=== PATIENT | male | born 1965 | race African-American/Black ===

== ENCOUNTER 2016-12-31 01:07 | Emergency (ER) | payer OTHER ==
[~2016-12-31] VITALS: Ht 172.7 cm; Wt 158.8 kg
[~2016-12-31 01:07] MED LIST: ALBUTEROL SULF8.5 GM INH; AZITHROMYCIN250 MG ORAL; BACTRIM DS TAB1 EAC1 ORAL; COZAAR50 MG ORAL; DOXYCYCLINE MO100 MG ORAL; GLUCOPHAGE500 MG ORAL; HYZAAR 100-251 EACH ORAL; LEVEMIR FL100 UNIT/1 SUBQ; LOSARTAN POTASS25 MG ORAL; METFORMIN HCL1000 MG ORAL; NAPROSYN500 M1 ORAL; NORCO 5-325 TA1 EAC1 ORAL; NORCO 5-325 TA1 EACH ORAL; POTASSIUM CHLO20 ME3 PO; PROMETHAZINE HC25 M1 ORAL; ROBAXIN-750750 MG PO; VICODIN 5-5001 EACH PO; ZANTAC150 MG ORAL; hyzaar
--- NOTE | 2016-12-31 01:52 | Emergency Room Report ---
History of Present Illness General Chief Complaint: Dizziness Source: Patient Present Illness HPI Patient presents with dry mouth, weakness, strange feeling in his abdomen with the thought that his blood sugar is elevated. He was started on a different oral medication recently. He does take Lantus 14 units twice a day. He was told he didn't need to check his blood sugars anymore when he stopped metformin. He started his new medications and his MD said that he would lose weight. He's not been eating well. His lost his appetite. Medicine = Synjardy. The patient complains of some mild chest pain. Nonexertional. He states he had gallstones which were taking care of by ERCP. He feels somewhat like that but doesn't have the pain that he had when he had gallstones. No dysuria, URI sy, cough, dyspnea, headache. Allergies: Coded Allergies: PENICILLINS (Verified Allergy, Intermediate, Rash, 05/14/13) Patient History Past Medical History: see triage record Past Surgical History: other - ERCP Social History: Reports: alcohol use, drug use - THC, Denies: smoking Social History Narrative At home Reviewed Nursing Documentation: PMH: Agreed, PSxH: Agreed Nursing Documentation-PMH Hx Cardiac Problems: Yes Hx Hypertension: Yes Hx Pacemaker: No Hx Asthma: No Hx COPD: No Hx Diabetes: Yes Hx Cancer: No Hx Gastrointestinal Problems: Yes - morbidly obese Hx Dialysis: No Hx Neurological Problems: Yes Hx Cerebrovascular Accident: No Hx Headaches: Yes Hx Weakness: Yes Review of Systems All Other Systems: negative except mentioned in HPI Physical Exam Vital Signs Date Time Temp Pulse Resp B/P Pulse Ox O2 Delivery O2 Flow Rate FiO2 12/31/16 01:11 98.1 104 16 122/77 95 Room Air Sp02 EP Interpretation: reviewed, normal General Appearance: well appearing, no apparent distress, GCS 15, obese Head: normocephalic Eyes: bilateral eye PERRL, bilateral eye normal inspection ENT: dry mucus membranes Neck: supple Respiratory: lungs clear, normal breath sounds Cardiovascular #1: regular rate, rhythm Cardiovascular #2: 2+ radial (R) Gastrointestinal: normal inspection, normal bowel sounds, non tender, no mass, non-distended, overweight Musculoskeletal: back normal, gait/station normal, normal range of motion Neurologic: alert, oriented x3, motor strength/tone normal, sensory intact, normal gait, speech normal Psychiatric: mood/affect normal Skin: normal inspection, warm/dry Medical Decision Making Diagnostic Impression: Primary Impression: Hyperglycemia Additional Impression: Hyperkalemia ER Course Patient presents with anorexia, weakness and polyuria with polydipsia bleeding his blood sugars are elevated. This is after he's recently started on oral medications new. Differential includes hyperglycemia, diabetic ketoacidosis, electrolyte abnormalities, renal insufficiency, acute myocardial infarction amongst others. Evaluation will be with labs, EKG, chest x-ray after the patient will IV hydration and recheck of his blood sugar. Labs with elevated glucose and potassium. Minimal renal insufficiency. EKG without peaked T waves. CXR, abd unremarkable. Sugars better. Treated with kayexelate. Discussed need to follow up with his MD and have labs repeated. Also advised to increase lantus. Patient stable for outpatient observation and treatment. Laboratory Tests Test 12/31/16 01:45 12/31/16 02:59 White Blood Count 9.0 K/UL (4.8-10.8) Red Blood Count 5.49 M/UL (4.70-6.10) Hemoglobin 16.7 G/DL (14.2-18.0) Hematocrit 51.9 % (42.0-52.0) Mean Corpuscular Volume 94 FL (80-99) Mean Corpuscular Hemoglobin 30.5 PG (27.0-31.0) Mean Corpuscular Hemoglobin Concent 32.3 G/DL (32.0-36.0) Red Cell Distribution Width 13.0 % (11.6-14.8) Platelet Count 225 K/UL (150-450) Mean Platelet Volume 9.7 FL (6.5-10.1) Neutrophils (%) (Auto) 61.5 % (45.0-75.0) Lymphocytes (%) (Auto) 27.4 % (20.0-45.0) Monocytes (%) (Auto) 7.3 % (1.0-10.0) Eosinophils (%) (Auto) 2.7 % (0.0-3.0) Basophils (%) (Auto) 1.2 % (0.0-2.0) Prothrombin Time 10.6 SEC (9.30-11.50) Prothrombin Time INR 1.0 (0.9-1.1) PTT 27 SEC (23-33) Sodium Level 133 mEQ/L (135-145) L Potassium Level 5.4 mEQ/L (3.4-4.9) H Chloride Level 92 mEQ/L (98-107) L Carbon Dioxide Level 23 mEQ/L (20-30) Anion Gap 18 (5-15) H Blood Urea Nitrogen 13 mg/dL (7-23) Creatinine 1.2 mg/dL (0.7-1.2) Estimate Glomerular Filtration Rate > 60 mL/min (>60) Glucose Level 271 mg/dL (74-106) H Calcium Level 9.5 mg/dL (8.6-10.2) Total Bilirubin 0.7 mg/dL (0.0-1.2) Aspartate Amino Transferase (AST) 77 U/L (5-40) H Alanine Aminotransferase (ALT) 65 U/L (3-41) H Alkaline Phosphatase 141 U/L (40-129) H Total Creatine Kinase 1219 U/L (38-174) H Troponin I < 0.30 ng/mL (<=0.30) Total Protein 7.7 g/dL (6.6-8.7) Albumin 3.9 g/dL (3.5-5.2) Globulin 3.8 g/dL Albumin/Globulin Ratio 1.0 (1.0-2.7) Lipase 59 U/L (< 60) Urine Color Pale yellow Urine Appearance Clear Urine pH 6 (4.5-8.0) Urine Specific [place] 1.005 (1.005-1.035) Urine Protein Negative (NEGATIVE) Urine Glucose (UA) 4+ (NEGATIVE) H Urine Ketones Negative (NEGATIVE) Urine Occult Blood Negative (NEGATIVE) Urine Nitrite Negative (NEGATIVE) Urine Bilirubin Negative (NEGATIVE) Urine Urobilinogen Normal MG/DL (0.0-1.0) Urine Leukocyte Esterase Negative (NEGATIVE) EKG Diagnostic Results Rate: normal Rhythm: NSR ST Segments: no acute changes Rhythm Strip Diag. Results EP Interpretation: yes Rhythm: NSR, no PVC's, no ectopy Chest X-Ray Diagnostic Results EP Interpretation: Yes Findings: no consolidation, no effusion, no pneumothorax, no acute cardiopulmonary disease Number of Views: 1 Other X-Ray Diagnostic Results Other X-Ray Diagnostic Results : X-Ray Ordered: abd EP Interpretation: Yes Findings: no fractures, no dislocation, no soft tissue swelling, other - paucity gas, no SBO, no masses Number of Views: 2 Status: improved Disposition: HOME, SELF-CARE Condition: Improved London Jensen M.D. December 31, 2016 01:52
[2016-12-31 01:57] VITALS: BP 131/87
[2016-12-31 01:57] LABS: BASOPHILS % (AUTO) 1.2 % (0.0-2.0); EOSINOPHILS % (AUTO) 2.7 % (0.0-3.0); LYMPHOCYTES % (AUTO) 27.4 % (20.0-45.0); MEAN CORPUSCULAR HEMOGLOBIN 30.5 PG (27.0-31.0); MEAN CORPUSCULAR HGB CONC 32.3 G/DL (32.0-36.0); MEAN CORPUSCULAR VOLUME 94 FL (80-99); MEAN PLATELET VOLUME 9.7 FL (6.5-10.1); MONOCYTES % (AUTO) 7.3 % (1.0-10.0); NEUTROPHILS % (AUTO) 61.5 % (45.0-75.0); PLATELET COUNT 225 K/UL (150-450); RED BLOOD COUNT 5.49 M/UL (4.70-6.10)
[2016-12-31 02:13] LABS: PROTHROMBIN TIME 10.6 SEC (9.30-11.50)
[2016-12-31 02:20] LABS: ALANINE AMINOTRANSFERASE 65 U/L (3-41); ANION GAP 18 (5-15); ASPARTATE AMINO TRANSFERASE 77 U/L (5-40); CALCIUM 9.5 mg/dL (8.6-10.2); CARBON DIOXIDE 23 mEQ/L (20-30); CHLORIDE 92 mEQ/L (98-107); CREATININE 1.2 mg/dL (0.7-1.2); GLOMERULAR FILTRATION RATE > 60 mL/min (>60); HEMOLYSIS 248; LIPASE 59 U/L (< 60); POTASSIUM 5.4 mEQ/L (3.4-4.9); SODIUM 133 mEQ/L (135-145); TOTAL PROTEIN 7.7 g/dL (6.6-8.7)
[2016-12-31 02:33] LABS: TROPONIN I < 0.30 ng/mL (<=0.30)
[2016-12-31 03:11] LABS: APPEARANCE,URINE CLEAR; KETONES,URINE NEGATIVE (NEGATIVE); LEUKOCYTE ESTERASE ,URINE NEGATIVE (NEGATIVE); NITRITE,URINE NEGATIVE (NEGATIVE); PH,URINE 6 (4.5-8.0); PROTEIN,URINE NEGATIVE (NEGATIVE); UROBILINOGEN,URINE NORMAL MG/DL (0.0-1.0)
[2016-12-31 03:23] VITALS: BP 136/82
[2016-12-31] MEDS ORDERED: Sodium Polystyrene Sulfonate 15gm Powder ORAL ONE (04:15)
[2016-12-31 05:33] VITALS: BP 102/63
--- NOTE | 2016-12-31 11:13 | Diagnostic Imaging Report ---
Indications: Chest pain Technique: Portable AP chest Findings: Comparison: 10/02/2014 Inspiratory effort remains suboptimal but improved. Cardiac silhouette remains enlarged. Pulmonary vasculature remains within normal limits. Visualized portions of lungs and pleura remain clear. Mild elevation of the apparent right hemidiaphragm is unchanged. IMPRESSION: No evidence of acute disease, limited as described, unchanged Stable chronic changes as described
--- NOTE | 2016-12-31 11:51 | Diagnostic Imaging Report ---
Indications: Abdominal pain. Technique: AP view of the abdomen Findings: Comparison: None. Port image quality due to body habitus limits evaluation. Bowel gas pattern is unremarkable. No abnormal calcific or soft tissue densities are demonstrated. Visualized skeletal structures are unremarkable. IMPRESSION: Negative limited KUB.
--- NOTE | 2016-12-31 18:59 | Cardiology Report ---
APPROVED REPORT EKG Measurement Heart [id number] HI [id number] Normal sinus rhythm Low voltage QRS Borderline ECG
== END 2016-12-31 05:37 | disposition home or self-care (01) ==
LOC: EMR 01:25
DX: E11.65 Type 2 diabetes mellitus with hyperglycemia (principal); Z79.4 Long term (current) use of insulin; E87.5 Hyperkalemia; R07.9 Chest pain, unspecified; Z88.0 Allergy status to penicillin; I10 Essential (primary) hypertension; E66.01 Morbid (severe) obesity due to excess calories
CPT/HCPCS: 36415; 71010; 74000; 80053; 81003; 82550; 82962; 83690; 84484; 85025; 85610; 85730; 93005; 96360; 96374; 96375; 99284; J2405

== ENCOUNTER 2017-01-26 02:48 | Emergency (ER) | payer OTHER ==
[~2017-01-26] VITALS: Ht 172.7 cm; Wt 150.1 kg
[2017-01-26] MEDS ORDERED: NYSTATIN15 GM TOPIC (03:16)
[2017-01-26] MEDS ORDERED: metFORMIN 500mg tab ORAL ONE (03:30)
[2017-01-26 05:20] VITALS: BP 134/98
[2017-01-26 05:39] VITALS: BP 138/98
--- NOTE | 2017-01-29 14:51 | Emergency Room Report ---
History of Present Illness General Chief Complaint: Male Urogenital Problems Source: Patient Present Illness HPI Patient is a 51-year-old male who presented after increased discomfort his penis. Patient had recently had increased irritation and burning to the penile shaft. No fever. Patient gradual onset of symptoms. Not been vomiting. He denied any fever. He denied urgency of urination.He denied any new sexual contact Allergies: Coded Allergies: PENICILLINS (Verified Allergy, Intermediate, Rash, 05/14/13) Patient History Reviewed Nursing Documentation: PMH: Agreed, PSxH: Agreed Nursing Documentation-PM Past Medical History: No History, Except For Hx Cardiac Problems: Yes Hx Hypertension: Yes Hx Pacemaker: No Hx Asthma: No Hx COPD: No Hx Diabetes: Yes Hx Cancer: No Hx Gastrointestinal Problems: Yes - morbidly obese Hx Dialysis: No Hx Neurological Problems: Yes Hx Cerebrovascular Accident: No Hx Headaches: Yes Hx Weakness: Yes Review of Systems All Other Systems: negative except mentioned in HPI Physical Exam Vital Signs Date Time Temp Pulse Resp B/P Pulse Ox O2 Delivery O2 Flow Rate FiO2 01/26/17 02:54 98.2 97 16 157/100 98 Room Air General Appearance: well appearing, no apparent distress, alert, GCS 15 Head: normocephalic, atraumatic ENT: hearing grossly normal, normal voice Neck: full range of motion, supple Respiratory: no respiratory distress, speaking full sentences Cardiovascular #1: normal inspection, no gallop Gastrointestinal: normal inspection, normal bowel sounds, non tender, soft Musculoskeletal: normal inspection, gait/station normal, no calf tenderness Neurologic: normal inspection, alert, oriented x3, responsive, sugar mixer III-XII nml as tested, normal gait Psychiatric: mood/affect normal Skin: rash - white discoloration to penis Medical Decision Making Diagnostic Impression: Primary Impression: Candidiasis Additional Impression: Abnormal urogenital findings ER Course Patient presented for the penile burning sensation. The differential diagnosis included was not limited to urethritis,herpes, gonorhea, among others. Patient's benign exam and does not appear to require any further imaging or laboratory testing at this time. The patient appears to have genital candidiasis. The patient is advised to follow up with primary care doctor in 1-2 days. Patient is advised to return if any worsening condition or if any changes in status that are concerning. Last Vital Signs Date Time Temp Pulse Resp B/P Pulse Ox O2 Delivery O2 Flow Rate FiO2 01/26/17 05:39 98 20 138/98 98 Room Air 01/26/17 05:20 98.0 Status: improved Disposition: HOME, SELF-CARE Condition: Stable Scripts Nystatin* (NYSTATIN*) 15 Gm Cream..g. 1 APPLIC TOPIC THREE TIMES A DAY, #30 GM Prov: Esteban Cervantes 01/26/17 Referrals: [facility],REFERRING (PCP) Patient Instructions: Genital Yeast Infection, Male, Diabetes Mellitus and Food Esteban Cervantes Jan 29, 2017 14:50
== END 2017-01-26 05:30 | disposition home or self-care (01) ==
LOC: EMR 05:00
DX: B37.9 Candidiasis, unspecified (principal); Z88.0 Allergy status to penicillin; I10 Essential (primary) hypertension; E66.01 Morbid (severe) obesity due to excess calories; E11.9 Type 2 diabetes mellitus without complications
CPT/HCPCS: 82962; 96372; 99283; J1815

== ENCOUNTER 2018-09-02 14:19 | Emergency (ER) | payer OTHER ==
[~2018-09-02] VITALS: Ht 172.7 cm; Wt 145.1 kg
[~2018-09-02 14:19] MED LIST changes: +NYSTATIN15 GM TOPIC
--- NOTE | 2018-09-02 14:30 | NUR ---
ED Nurse Note: pt walked in c/o right side pain (knee, leg, and hip) for about week and progressively worsening, denies injuries or falling. Pt AA&ox4, gcs=15, skin warm and dry, resp even and unlabored, -n/v/d, ambulates w/ steady gait, will cont monitor.
[2018-09-02 15:26] VITALS: BP 128/76
--- NOTE | 2018-09-02 15:54 | Emergency Room Report ---
History of Present Illness General Chief Complaint: Pain Source: Patient Present Illness HPI 53 YO male presents to the ED c/o 04/04 in severity Right posterior hip pain and right knee pain developing over the past week.. Reports also hx of sciatica but reports swelling in the knee. Denies numbness tingling or loss of sensation or gross motor movements of the extremities, incontinence of bowel or bladder. Denies CP, Palpitations, LOC, AMS , dizziness, Changes in Vision, weakness or a sudden severe headache. Pt. with hx of DM on oral medication and insulin. pt. reports he has not been able to take is afternoon dose of insulin today. Allergies: Coded Allergies: PENICILLINS (Verified Allergy, Intermediate, Rash, 05/14/13) Patient History Past Medical History: see triage record, DM Past Surgical History: none Pertinent Family History: none Reviewed Nursing Documentation: PMH: Agreed; PSxH: Agreed Nursing Documentation-PMH Past Medical History: No History, Except For Hx Cardiac Problems: Yes Hx Hypertension: Yes Hx Pacemaker: No Hx Asthma: No Hx COPD: No Hx Diabetes: Yes Hx Cancer: No Hx Gastrointestinal Problems: Yes - morbidly obese Hx Dialysis: No Hx Neurological Problems: Yes Hx Cerebrovascular Accident: No Hx Headaches: Yes Hx Weakness: Yes Review of Systems All Other Systems: negative except mentioned in HPI Physical Exam Vital Signs Date Time Temp Pulse Resp B/P (MAP) Pulse Ox O2 Delivery O2 Flow Rate FiO2 09/02/18 14:29 99.0 91 20 128/76 98 Room Air Sp02 EP Interpretation: reviewed, normal General Appearance: no apparent distress, alert, GCS 15, non-toxic, obese Head: normocephalic, atraumatic Eyes: bilateral eye normal inspection, bilateral eye PERRL ENT: hearing grossly normal, normal voice Neck: full range of motion Respiratory: lungs clear, normal breath sounds, speaking full sentences Cardiovascular #1: regular rate, rhythm Gastrointestinal: non tender, soft Genitourinary: normal inspection, no CVA tenderness Musculoskeletal: back normal, gait/station normal, normal range of motion, non- tender, tender - TTP to the anterior right knee, mild swelling noted. Lateral and posterior TTP to the right hip, also gluteal ttp. Some right lumbar paraspinal TTP, no midline spinous process tenderness. Neurologic: alert, oriented x3, responsive, motor strength/tone normal, sensory intact, normal gait, speech normal, grossly normal Psychiatric: judgement/insight normal Skin: normal color, no rash, warm/dry, well hydrated Medical Decision Making PA Attestation Dr. Steward is my supervising Physician whom patient management has been discussed with. Diagnostic Impression: Primary Impression: Osteoarthritis Qualified Codes: M17.11 - Unilateral primary osteoarthritis, right knee Additional Impression: Sciatic nerve pain Qualified Codes: M54.31 - Sciatica, right side ER Course 53 YO male presents to the ED c/o 04/04 in severity Right posterior hip pain and right knee pain developing over the past week.. Reports also hx of sciatica but reports swelling in the knee. Denies numbness tingling or loss of sensation or gross motor movements of the extremities, incontinence of bowel or bladder. Denies CP, Palpitations, LOC, AMS , dizziness, Changes in Vision, weakness or a sudden severe headache. Pt. with hx of DM on oral medication and insulin. pt. reports he has not been able to take is afternoon dose of insulin today. Ddx considered but are not limited to Fracture, dislocation, contusion, Sprain/ Strain/Spasm, sciatica just to name a few. Vital signs: are WNL, pt. is afebrile H&PE are most consistent with musculoskeletal injury will perform imaging to r/ o fractures/dislocations. ORDERS: - X-ray Right Hip 2 views, and Right - negative for fx, Dislocation, or significant soft tissue injury, per preliminary read in ED, and signed by TYLER Herrmann, my supervising physician has reviewed, and agrees with my interpretation. ED INTERVENTIONS: - 20 Unite regular insulin Sub Q --Pt. declines fluids and further workup of his elevated sugar he states he will continue his normal doses at home. d/w pt. the need to check regularly and keep a log and follow up with his PCP within 2 days or return to the ED. DISCHARGE: At this time pt. is stable for d/c to home. Will provide printed patient care instructions, and any necessary prescriptions. Care plan and follow up instructions have been discussed with the patient prior to discharge. Other X-Ray Diagnostic Results Other X-Ray Diagnostic Results #1: X-Ray ordered: Right Knee # of Views/Limited Vs Complete: 3 View Indication: Pain EP Interpretation: Yes TYLER Xray: Interpretation reviewed, by supervising MD, and agrees with findings. Interpretation: no dislocation, no soft tissue swelling, no fractures Impression: No acute disease Electronically Signed by: Arlin Herrmann PA-C Other X-Ray Diagnostic Results #2: X-Ray ordered: Right hip # of Views/Limited Vs Complete: 2 View Indication: Pain EP Interpretation: Yes PA Xray: Interpretation reviewed, by supervising MD, and agrees with findings. Interpretation: no dislocation, no soft tissue swelling, no fractures Impression: No acute disease Electronically Signed by: Arlin Herrmann PA-C Last Vital Signs Date Time Temp Pulse Resp B/P (MAP) Pulse Ox O2 Delivery O2 Flow Rate FiO2 09/02/18 15:26 99.0 78 20 128/76 98 Room Air Disposition: HOME, SELF-CARE Condition: Stable Scripts Methocarbamol* (ROBAXIN-750*) 750 Mg Tablet 750 MG PO QID for 7 Days, #28 TAB 0 Refills Prov: Arlin Herrmann 09/02/18 Patient Instructions: Blood Glucose Monitoring, Adult, Osteoarthritis, Sciatica , Qyes-ca-[place] Additional Instructions: Take medications as directed. Follow up with a Primary Care Provider in 2-3 days, even if your symptoms have resolved. ---continue to closely monitor your blood glucose and take your medications as directed if your glucose levels into need to be elevated please contact your doctor within the next 2 days for medication adjustment. If unable to contact her doctor and glucose remained high in addition to having other symptoms please return promptly to the emergency department for aggressive management of your high blood sugar. Return sooner to ED if new symptoms occur, or current symptoms become worse. Do not drink alcohol, drive, or operate heavy machinery while taking Robaxin ( Muscle Relaxers) as this may cause drowsiness. - Please note that this Emergency Department Report was dictated using [employer] technology software, occasionally this can lead to erroneous entry secondary to interpretation by the dictation equipment. Arlin Herrmann Sep 02, 2018 15:54
--- NOTE | 2018-09-02 16:00 | NUR ---
ED Nurse Note: BG CHECKED AT BEDSIDE: 394. TYLER GAUTAM AWARE.
[2018-09-02] MEDS ORDERED: Insulin Human Regular 100units/ml 3ml SUBQ ONE (16:15)
--- NOTE | 2018-09-02 16:15 | Diagnostic Imaging Report ---
Indication: Pain Knee pain/trauma 3 views of the right knee were obtained. Findings: No definite fractures identified. There is narrowing of the medial compartment of the knee with marginal spur formation. Bones are osteopenic. IMPRESSION: Osteoarthritis
--- NOTE | 2018-09-02 16:15 | Diagnostic Imaging Report ---
Indications: hip pain Findings: Two views of the right hip were obtained. No acute fracture is demonstrated. Alignment of the hip is within normal limits. Soft tissues are unremarkable. Impression: Negative for acute injury.
[2018-09-02] MEDS ORDERED: ROBAXIN-750750 MG PO (17:07)
[2018-09-02 17:15] VITALS: BP 132/77
--- NOTE | 2018-09-02 17:15 | NUR ---
ED Nurse Note: PT LAYING PEACEFULLY IN BED IN NAD. AOX4. PRESCRIPTIONS AND DISCHARGE PAPERWORK EXPLAINED TO PT. PT VERBALIZES UNDERSTANDING AND DENIES ANY QUESTIONS AT THIS TIME. PRESCRIPTIONS AND DISCHARGE PAPERWORK GIVEN TO PT AND ID WRISTBAND REMOVED. PT WALKED OUT OF ER WITH STEADY GAIT AND ALL BELONGINGS.
== END 2018-09-02 17:16 | disposition home or self-care (01) ==
LOC: EMR 16:17
DX: M17.11 Unilateral primary osteoarthritis, right knee (principal); M54.31 Sciatica, right side; E11.9 Type 2 diabetes mellitus without complications; I10 Essential (primary) hypertension; Z88.0 Allergy status to penicillin
CPT/HCPCS: 73502; 73562; 96372; 99284; J1815

== ENCOUNTER 2018-10-11 23:19 | Inpatient (IN) | payer OTHER ==
[~2018-10-11] VITALS: Ht 172.7 cm; Wt 137.9 kg
[2018-10-11] MEDS ORDERED: UNOBMED (23:47)
--- NOTE | 2018-10-11 23:58 | NUR ---
ED Nurse Note: Patient walk in c/o lower abdominal pain for 3 hours. Patient reports nausea/vomiting. Pt is AO x 4times, VSS, on room air no distress. ERMD seen Pt at bedside.
--- NOTE | 2018-10-12 00:09 | Emergency Room Report ---
History of Present Illness General Chief Complaint: Abdominal Pain Source: Patient Present Illness HPI Patient presents with complaint of mid abdominal pain nausea vomiting Patient reports the pain started several hours ago Denies any chest pain or shortness of breath denies any fevers Denies any diarrhea denies any recent travel pain is a cramping and sharp pain 5 out of 10 Denies any dysuria or frequency Allergies: Coded Allergies: PENICILLINS (Verified Allergy, Intermediate, Rash, 05/14/13) Patient History Past Medical History: see triage record Pertinent Family History: none Reviewed Nursing Documentation: PMH: Agreed; PSxH: Agreed Nursing Documentation-PMH Past Medical History: No History, Except For Hx Cardiac Problems: Yes Hx Hypertension: Yes Hx Pacemaker: No Hx Asthma: No Hx COPD: No Hx Diabetes: Yes Hx Cancer: No Hx Gastrointestinal Problems: Yes - morbidly obese Hx Dialysis: No Hx Neurological Problems: Yes Hx Cerebrovascular Accident: No Hx Headaches: Yes Hx Weakness: Yes Review of Systems All Other Systems: negative except mentioned in HPI Physical Exam Vital Signs Date Time Temp Pulse Resp B/P (MAP) Pulse Ox O2 Delivery O2 Flow Rate FiO2 10/11/18 23:42 97.3 73 16 111/68 99 Room Air Sp02 EP Interpretation: reviewed, normal General Appearance: well appearing, no apparent distress Head: normocephalic, atraumatic Eyes: bilateral eye PERRL, bilateral eye EOMI ENT: normal pharynx Neck: full range of motion, supple Respiratory: lungs clear, no retraction, no accessory muscle use Cardiovascular #1: regular rate, rhythm Gastrointestinal: non tender - However subjectively points to the mid abdominal area Genitourinary: no CVA tenderness Musculoskeletal: normal inspection, back normal Neurologic: alert, oriented x3 Skin: normal color, no rash Lymphatic: no adenopathy Medical Decision Making Diagnostic Impression: Primary Impression: Abdominal pain Additional Impressions: Pancreatitis Obesity ER Course With the history exam and presentation, multiple differentials considered, including but not limited to appendicitis, gastritis, cholecystitis, diverticulitis Patient glucose level is elevated lipase also elevated Patient did have several episodes of vomiting in the emergency room At this time requiring further hydration and inpatient care Labs Test 10/12/18 00:20 10/13/18 06:11 White Blood Count 10.7 K/UL (4.8-10.8) 6.9 K/UL (4.8-10.8) Red Blood Count 4.94 M/UL (4.70-6.10) 4.63 M/UL (4.70-6.10) Hemoglobin 14.9 G/DL (14.2-18.0) 13.8 G/DL (14.2-18.0) Hematocrit 45.8 % (42.0-52.0) 43.6 % (42.0-52.0) Mean Corpuscular Volume 93 FL (80-99) 94 FL (80-99) Mean Corpuscular Hemoglobin 30.2 PG (27.0-31.0) 29.8 PG (27.0-31.0) Mean Corpuscular Hemoglobin Concent 32.6 G/DL (32.0-36.0) 31.6 G/DL (32.0-36.0) Red Cell Distribution Width 12.0 % (11.6-14.8) 12.5 % (11.6-14.8) Platelet Count 262 K/UL (150-450) 214 K/UL (150-450) Mean Platelet Volume 7.9 FL (6.5-10.1) 7.8 FL (6.5-10.1) Neutrophils (%) (Auto) 70.5 % (45.0-75.0) 61.3 % (45.0-75.0) Lymphocytes (%) (Auto) 20.9 % (20.0-45.0) 27.3 % (20.0-45.0) Monocytes (%) (Auto) 5.8 % (1.0-10.0) 8.1 % (1.0-10.0) Eosinophils (%) (Auto) 2.0 % (0.0-3.0) 2.7 % (0.0-3.0) Basophils (%) (Auto) 0.9 % (0.0-2.0) 0.7 % (0.0-2.0) Sodium Level 135 MMOL/L (136-145) 138 MMOL/L (136-145) Potassium Level 3.9 MMOL/L (3.5-5.1) 3.7 MMOL/L (3.5-5.1) Chloride Level 98 MMOL/L (98-107) 104 MMOL/L (98-107) Carbon Dioxide Level 27 MMOL/L (21-32) 26 MMOL/L (21-32) Anion Gap 10 mmol/L (5-15) 9 mmol/L (5-15) Blood Urea Nitrogen 14 mg/dL (7-18) 8 mg/dL (7-18) Creatinine 1.2 MG/DL (0.55-1.30) 0.8 MG/DL (0.55-1.30) Estimat Glomerular Filtration Rate > 60 mL/min (>60) > 60 mL/min (>60) Glucose Level 258 MG/DL (74-106) 121 MG/DL (74-106) Hemoglobin A1c 10.4 % (4.3-6.0) Calcium Level 8.9 MG/DL (8.5-10.1) 8.4 MG/DL (8.5-10.1) Total Bilirubin 0.5 MG/DL (0.2-1.0) 1.0 MG/DL (0.2-1.0) Aspartate Amino Transf (AST/SGOT) 13 U/L (15-37) 11 U/L (15-37) Alanine Aminotransferase (ALT/SGPT) 28 U/L (12-78) 21 U/L (12-78) Alkaline Phosphatase 167 U/L (46-116) 110 U/L (46-116) Total Protein 7.6 G/DL (6.4-8.2) 6.7 G/DL (6.4-8.2) Albumin 3.3 G/DL (3.4-5.0) 2.6 G/DL (3.4-5.0) Globulin 4.3 g/dL 4.1 g/dL Albumin/Globulin Ratio 0.8 (1.0-2.7) 0.6 (1.0-2.7) Lipase 899 U/L (73-393) 149 U/L (73-393) Last Vital Signs Date Time Temp Pulse Resp B/P (MAP) Pulse Ox O2 Delivery O2 Flow Rate FiO2 10/11/18 23:42 97.3 73 16 111/68 99 Room Air Status: improved Disposition: ADMITTED INPATIENT Condition: Serious Referrals: NON PHYSICIAN (PCP) Wayne Ricci DO Oct 12, 2018 00:08
[2018-10-12] MEDS ORDERED: Morphine Sulfate 4mg/ml Inj (IV USE ONLY) IM ONE (00:15)
--- NOTE | 2018-10-12 00:25 | NUR ---
ED Nurse Note: Blood sample sent to lab.
[2018-10-12 00:27] LABS: BASOPHILS % (AUTO) 0.9 % (0.0-2.0); HEMATOCRIT 45.8 % (42.0-52.0); HEMOGLOBIN 14.9 G/DL (14.2-18.0); LYMPHOCYTES % (AUTO) 20.9 % (20.0-45.0); MEAN CORPUSCULAR VOLUME 93 FL (80-99); MONOCYTES % (AUTO) 5.8 % (1.0-10.0); NEUTROPHILS % (AUTO) 70.5 % (45.0-75.0); PLATELET COUNT 262 K/UL (150-450); RED BLOOD COUNT 4.94 M/UL (4.70-6.10); WHITE BLOOD COUNT 10.7 K/UL (4.8-10.8)
[2018-10-12 00:36] VITALS: BP 124/78
[2018-10-12 00:38] LABS: ANION GAP 10 mmol/L (5-15); BLOOD UREA NITROGEN 14 mg/dL (7-18); CALCIUM 8.9 MG/DL (8.5-10.1); CARBON DIOXIDE 27 MMOL/L (21-32); CHLORIDE 98 MMOL/L (98-107); CREATININE 1.2 MG/DL (0.55-1.30); POTASSIUM 3.9 MMOL/L (3.5-5.1); SODIUM 135 MMOL/L (136-145)
[2018-10-12 00:44] LABS: ALANINE AMINOTRANSFERASE 28 U/L (12-78); ALBUMIN 3.3 G/DL (3.4-5.0); ALBUMIN/GLOBULIN RATIO 0.8 (1.0-2.7); ALKALINE PHOSPHATASE 167 U/L (46-116); ASPARTATE AMINO TRANSFERASE 13 U/L (15-37); BILIRUBIN,TOTAL 0.5 MG/DL (0.2-1.0)
[2018-10-12] MEDS ORDERED: DiphenhydrAMINE 50mg/ml Inj IVP ONE (01:00)
[2018-10-12] MEDS ORDERED: Metoclopramide 10mg/2ml Inj IVP ONE (01:00)
[2018-10-12] MEDS ORDERED: Morphine Sulfate 4mg/ml Inj (IV USE ONLY) IVP ONE (01:00)
[2018-10-12 04:30] VITALS: BP 130/88
--- NOTE | 2018-10-12 04:47 | NUR ---
ED Nurse Note: Admit Pt to 4E room 405-1. Belongings and skin report to RN. Report given to DIMPLE Pandya.
--- NOTE | 2018-10-12 05:00 | NUR ---
NURSE NOTES: Received patient from ER with admitting dx of pancreatitis and DM. Reported received from LOT ATTENDANT Ozzy. On RA, no SOB, no acute distress. Belongings checked, oriented patient to surroundings. Bed in lowest position, locked, alarms on. Call light in reach. Will received admission orders from Dr Clark.
--- NOTE | 2018-10-12 05:15 | NUR ---
NURSE NOTES: According to patient, patient is unable to recall all meds from med recon.
[2018-10-12] MEDS ORDERED: Hydromorphone 0.5mg/0.5ml inj IVP PRN (05:45)
[2018-10-12] MEDS: NovoLOG Insulin Flexpen SUBQ SCH ×4 (06:23→20:26)
--- NOTE | 2018-10-12 07:24 | NUR ---
HAND-OFF: Report given to Gina MUSA.
--- NOTE | 2018-10-12 07:29 | NUR ---
nurse notes received patient resting comfortably in bed, sleeping no sign of distress, on NPO status, on going hydration, on fall precaution observed and maintained, kept clean dry and intact, will continue to monitor patient condition reny medina
[2018-10-12 08:00] VITALS: BP 118/67
[2018-10-12] MEDS: Pantoprazole Inj IVP SCH (08:15)
[2018-10-12 12:21] VITALS: BP 130/70
--- NOTE | 2018-10-12 15:19 | NUR ---
NURSE NOTES Dr Clark ordered continue home meds except robaxin and naproxyn medication reconcillation not done per patient he doesnt remember the name of his medication , instructed patient to call family to bring the list of meds reny medina
[2018-10-12 16:05] VITALS: BP 119/67
--- NOTE | 2018-10-12 17:30 | History and Physical Report ---
DATE OF ADMISSION: 10/12/2018 CHIEF COMPLAINT/REASON FOR HOSPITALIZATION: The patient admitted for abdominal pain. HISTORY OF PRESENT ILLNESS: The patient is a 53-year-old male, who presents with a new onset of abdominal pain, lower abdominal pain, suprapubic, and some diarrhea. He thinks this is related to food he ate from a food truck. He has an elevated lipase consistent with pancreatitis. Four years ago, he had a procedure I believe ERCP for cholecystitis, but did not have his gallbladder removed. The patient has a history of hypertension and diabetes. MEDICATIONS: At home include albuterol inhalation, Perkins, Levemir, losartan, Hyzaar, metformin, Robaxin, Naprosyn, Nystatin, potassium. HABITS: He is a nonsmoker. Uses marijuana. He says he has 2 beers a day. SURGERIES: Procedure on the gallbladder. No other procedures. SYSTEM REVIEW: HEAD, EYES, EARS, NOSE, AND THROAT: The patient's hearing is good. ENDOCRINE: History of diabetes and obesity. PULMONARY: No chronic cough, asthma, TB. CARDIAC: No angina, LA, palpitations. GASTROINTESTINAL: See above. No history of rectal bleeding, chronic diarrhea, or constipation. GENITOURINARY: No dysuria, hematuria. NEUROLOGIC: No CVA syncope or seizures. PHYSICAL EXAMINATION: GENERAL: The patient is a large man, 137.8 kilos, 172 cm. VITAL SIGNS: Temperature 97, pulse 74, respirations 18, and blood pressure 118/67. HEAD, EYES, EARS, NOSE, AND THROAT: Sclerae are nonicteric. Ocular motions intact in all directions. Oral mucosa moist. NECK: No adenopathy or thyroid enlargement. LUNGS: Clear. HEART: Regular rhythm. No murmur. ABDOMEN: Soft without organomegaly or tenderness. EXTREMITIES: No edema, cyanosis, or clubbing. LABORATORY DATA: Pertinent labs show glucose of 258. Lipase 899. Remainder of labs are unremarkable except for a mild elevation of alk phos. IMPRESSION: 1. Acute pancreatitis, possibly gallstone pancreatitis versus secondary to alcohol. 2. Recent diarrhea. 3. Recent ingestion of unknown food that may have precipitated this. PLAN: The patient was started on hydration IV. Clear liquids advance to solids. Do imaging and make further disposition . Tj Clark M.D. DR: ALISIA JOB#: [id number] CC:
--- NOTE | 2018-10-12 18:20 | NUR ---
NURSE NOTES TOLERATED THE CLEAR LIGUID DIET, STARTED ON SOFT DIABETIC DIET, DENIES ABDOMINAL PAIN AND NAUSEA AND VOMITING DIMPLE WINTER
--- NOTE | 2018-10-12 19:07 | NUR ---
HAND-OFF: Report given to PHILLY MUSA
--- NOTE | 2018-10-12 19:45 | NUR ---
NURSE NOTES: Received patient in bed, in calm mood. On RA, no SOB, no acute distress, no c/o pain. S/P NPO and currently on CCHO M soft diet, tolerating well. LAC IV intact, patent running fluids. Bed in lowest position, locked, alarms on. Call light in reach.
[2018-10-12 20:00] VITALS: BP 103/62
[2018-10-13] VITALS: BP 91/52
[2018-10-13 01:00] VITALS: BP 102/64
[2018-10-13 04:00] VITALS: BP 121/66
[2018-10-13] MEDS: NovoLOG Insulin Flexpen SUBQ SCH ×2 (05:50→12:52)
[2018-10-13 07:45] LABS: BASOPHILS % (AUTO) 0.7 % (0.0-2.0); EOSINOPHILS % (AUTO) 2.7 % (0.0-3.0); HEMATOCRIT 43.6 % (42.0-52.0); HEMOGLOBIN 13.8 G/DL (14.2-18.0); LYMPHOCYTES % (AUTO) 27.3 % (20.0-45.0); MEAN CORPUSCULAR VOLUME 94 FL (80-99); MONOCYTES % (AUTO) 8.1 % (1.0-10.0); NEUTROPHILS % (AUTO) 61.3 % (45.0-75.0); PLATELET COUNT 214 K/UL (150-450); RED BLOOD COUNT 4.63 M/UL (4.70-6.10); RED CELL DISTRIBUTION WIDTH 12.5 % (11.6-14.8); WHITE BLOOD COUNT 6.9 K/UL (4.8-10.8)
--- NOTE | 2018-10-13 07:50 | NUR ---
HAND-OFF: Report given to Stormy MUSA.
[2018-10-13 08:00] VITALS: BP 118/66
[2018-10-13 08:13] LABS: ALANINE AMINOTRANSFERASE 21 U/L (12-78); ALBUMIN 2.6 G/DL (3.4-5.0); ALBUMIN/GLOBULIN RATIO 0.6 (1.0-2.7); ALKALINE PHOSPHATASE 110 U/L (46-116); ANION GAP 9 mmol/L (5-15); ASPARTATE AMINO TRANSFERASE 11 U/L (15-37); BLOOD UREA NITROGEN 8 mg/dL (7-18); CALCIUM 8.4 MG/DL (8.5-10.1); CARBON DIOXIDE 26 MMOL/L (21-32); CHLORIDE 104 MMOL/L (98-107); CREATININE 0.8 MG/DL (0.55-1.30); POTASSIUM 3.7 MMOL/L (3.5-5.1); SODIUM 138 MMOL/L (136-145)
[2018-10-13] MEDS: Pantoprazole Inj IVP SCH (08:43)
--- NOTE | 2018-10-13 14:12 | NUR ---
NURSE NOTES: Obtained order from Dr. Clark to mo patient home. To cont home meds. Discharge teaching provided to patient. Verbalized understanding. Belongings with patient. IV line removed. Accompanied to lobby.
--- NOTE | 2018-10-13 21:15 | Discharge Summary ---
DATE OF ADMISSION: 10/12/2018 DATE OF DISCHARGE: 10/13/2018 PERTINENT HISTORY: The patient is admitted with abdominal pain and elevated lipase in the emergency room. He felt his abdominal pain was secondary to eating from a food truck. He has had a prior episode of cholecystitis and had an endoscopic retrograde cholangiopancreatography. The patient has obesity and diabetes. PERTINENT PHYSICAL FINDINGS: LUNGS: Clear. HEART: Regular rhythm. ABDOMEN: Soft. No organomegaly or tenderness at the time of my exam. COURSE IN THE HOSPITAL: The patient felt better shortly after being observed overnight and diet was advanced. He had a lipase of 899 in the emergency room and 149 on 10/13/2018. Glucose 258 and 121. He tolerated the diet and wished to go home and he was discharged home in stable condition. FINAL DIAGNOSES: 1. Acute pancreatitis. 2. Diabetes. 3. Obesity. 4. Recent diarrhea, improved. DISCHARGE DISPOSITION: Home on a diabetic low-fat diet and his home medications. FOLLOWUP: Follow up by his primary care physician, who is not on staff in this hospital. Tj Clark M.D. DR: SHANA JOB#: [id number] CC:
== END 2018-10-13 13:06 | disposition home or self-care (01) | DRG 282 ==
LOC: EMR 23:42 → 4E 10-12 03:20 → EDBEDREQ 10-12 04:06
DX: K85.90 Acute pancreatitis without necrosis or infection, unspecified (principal); Z68.42 Body mass index [BMI] 45.0-49.9, adult; E11.9 Type 2 diabetes mellitus without complications; E66.9 Obesity, unspecified; I10 Essential (primary) hypertension; Z79.84 Long term (current) use of oral hypoglycemic drugs
CPT/HCPCS: 36415; 80053; 82962; 83036; 83690; 85025; 96361; 96372; 96374; 96375; 99285; J1815; J2765

== ENCOUNTER 2019-05-28 23:55 | Emergency (ER) | payer OTHER ==
[~2019-05-28] VITALS: Ht 172.7 cm; Wt 131.5 kg
[~2019-05-28 23:55] MED LIST changes: +UNOBMED
[2019-05-29] VITALS: BP 134/94
--- NOTE | 2019-05-29 00:06 | NUR ---
ED Nurse Note: Pt walked in c/o insect bite on back of neck since 1 week ago. / pain. Back of neck swollen, warm to touch and red.Pt stated site was popped and puss came out and now swelling is worse. AO4 NAD VSS
[2019-05-29] MEDS ORDERED: IBUPROFEN600 MG ORAL (00:56)
[2019-05-29] MEDS ORDERED: BACTRIM DS TAB1 EAC1 ORAL (00:56)
--- NOTE | 2019-05-29 00:57 | Emergency Room Report ---
History of Present Illness General Chief Complaint: Animal Bite Source: Patient Present Illness HPI 54-year-old male with history diabetes high blood pressure. He presents with chief complaint of insect/bug bite to his head. This been ongoing for about 5 days. His girlfriend squeezed some pus out today and now more swollen. Tender to the back of the head. No fever chills but no nausea no vomiting. Denies any other complaint. Never had this problem before. Did not actually see any bug or mosquito bite. Allergies: Coded Allergies: PENICILLINS (Verified Allergy, Intermediate, Rash, 05/14/13) Patient History Past Medical History: see triage record, old chart reviewed, DM, HTN Past Surgical History: none Pertinent Family History: none Social History: Denies: smoking Immunizations: other Reviewed Nursing Documentation: PMH: Agreed; PSxH: Agreed Nursing Documentation-PMH Hx Cardiac Problems: Yes Hx Hypertension: Yes Hx Pacemaker: No Hx Asthma: No Hx COPD: No Hx Diabetes: Yes Hx Cancer: No Hx Gastrointestinal Problems: Yes Hx Dialysis: No Hx Neurological Problems: Yes Hx Cerebrovascular Accident: No Hx Headaches: Yes Hx Weakness: Yes Review of Systems Eye: Denies: eye pain, blurred vision ENT: Denies: ear pain, nose congestion, throat swelling Respiratory: Denies: cough, shortness of breath Cardiovascular: Denies: chest pain, palpitations Gastrointestinal: Denies: abdominal pain, diarrhea, nausea, vomiting Musculoskeletal: Denies: back pain, joint pain Skin: Denies: rash Neurological: Denies: headache, numbness Endocrine: Denies: increased thirst, increased urine Hematologic/Lymphatic: Denies: easy bruising All Other Systems: negative except mentioned in HPI Physical Exam Vital Signs Date Time Temp Pulse Resp B/P (MAP) Pulse Ox O2 Delivery O2 Flow Rate FiO2 05/28/19 23:58 98.1 83 16 134/94 (107) 96 Vitals normal Sp02 EP Interpretation: reviewed, normal General Appearance: well appearing, no apparent distress, alert Head: normocephalic, atraumatic, other - On the right occipital scalp just above the nape of the neck, there is an indurated area of about 2 cm with erythema. Tender to palpation. Eyes: bilateral eye PERRL, bilateral eye EOMI ENT: hearing grossly normal, normal pharynx Neck: full range of motion, supple, no meningismus Respiratory: chest non-tender, lungs clear, normal breath sounds Cardiovascular #1: regular rate, rhythm, no murmur Gastrointestinal: normal bowel sounds, non tender, no mass, no organomegaly, no bruit, non-distended Musculoskeletal: back normal, gait/station normal, normal range of motion Psychiatric: mood/affect normal Procedures Incision and Drainage Incision and Drainage : Consent: Verbal Site: Scalp Blade Size: 11 I & D Procedure: betadine prep, sterile drapes applied, sterile dressing applied Wound Location: head Anesthesia: 1% Lidocaine Volume Anesthetic (ccs): 3 Patient Tolerated: Well Complications: None Progress I made a 1 cm incision. Using a Noy forcep, I dissected down to break up any loculation. Only small amount of purulent discharge. Patient tolerated procedure without any problem. Medical Decision Making Diagnostic Impression: Primary Impression: Scalp abscess ER Course Patient with abscess of the scalp. No deep infection. No necrotizing fasciitis. I did not see any evidence of abscesses. Most likely MRSA nature. Will discharge home. Last Vital Signs Date Time Temp Pulse Resp B/P (MAP) Pulse Ox O2 Delivery O2 Flow Rate FiO2 05/29/19 00:00 98.1 66 16 134/94 96 Status: improved Disposition: HOME, SELF-CARE Condition: Stable Scripts Ibuprofen* (MOTRIN*) 600 Mg Tablet 600 MG ORAL THREE TIMES A DAY, #30 TAB 0 Refills Prov: Oziel Escobar MD 05/29/19 Trimethoprim/Sulfamethoxazole 160/800* (BACTRIM DS TABLET*) 1 Each Tablet 1 TAB ORAL Q12H, #14 TAB 0 Refills Prov: Oziel Escobar MD 05/29/19 Referrals: [facility],REFERRING (PCP) Additional Instructions: Keep wound clean. Clean first with hydrogen peroxide and then apply antibiotic ointment. Follow-up with your doctor in 7 days for recheck. Return if worse. Oziel Escobar MD May 29, 2019 00:57
[2019-05-29 01:00] VITALS: BP 134/94
[2019-05-29] MEDS ORDERED: Bactrim-DS 1 tab ORAL ONE (01:00)
--- NOTE | 2019-05-29 01:00 | NUR ---
ER DISCHARGE NOTE: Patient is cleared to be discharged per ERMD, pt is aox4, on room air, with stable vital signs. pt was given dc and prescription instructions, pt was able to verbalize understanding, pt id band removed. pt is able to ambulate with steady gait. pt took all belongings.
== END 2019-05-29 01:00 | disposition home or self-care (01) ==
LOC: EMR 05-29 00:30
DX: L02.811 Cutaneous abscess of head [any part, except face] (principal); E11.9 Type 2 diabetes mellitus without complications; I10 Essential (primary) hypertension; Z88.0 Allergy status to penicillin
CPT/HCPCS: 10060; Z7502; 99282

== ENCOUNTER 2019-06-01 04:17 | Emergency (ER) | payer OTHER ==
[~2019-06-01] VITALS: Ht 172.7 cm; Wt 131.5 kg
[~2019-06-01 04:17] MED LIST changes: +IBUPROFEN600 MG ORAL
[2019-06-01 04:28] VITALS: BP 135/88
--- NOTE | 2019-06-01 04:28 | NUR ---
ED Nurse Note: pt walked into ED C/O pain, swelling and redness to back of his neck. pt states he has been treating it. the area has got better, and then got worse again. pt was here recently for abscess and had it drained. pt is alert x4.
[2019-06-01] MEDS ORDERED: HYDROCODON-ACE1 EA15 ORAL (04:43)
--- NOTE | 2019-06-01 04:43 | Emergency Room Report ---
History of Present Illness General Chief Complaint: Skin Rash/Abscess Source: Patient Present Illness HPI This is a 54-year-old male whom I saw 3 days ago for scalp abscess. It was I&D and discharged home with antibiotics. He came back for recheck. Also complains being swollen more. Got better for 1 day but then now more swollen. Still has pain in that area. No fever chills but no more drainage. No nausea no vomiting. No other injury. Allergies: Coded Allergies: PENICILLINS (Verified Allergy, Intermediate, Rash, 05/14/13) Patient History Past Medical History: see triage record, old chart reviewed Past Surgical History: none Pertinent Family History: none Social History: Denies: smoking Immunizations: other Reviewed Nursing Documentation: PMH: Agreed; PSxH: Agreed Nursing Documentation-PMH Hx Cardiac Problems: Yes Hx Hypertension: Yes Hx Pacemaker: No Hx Asthma: No Hx COPD: No Hx Diabetes: Yes Hx Cancer: No Hx Gastrointestinal Problems: Yes Hx Dialysis: No Hx Neurological Problems: Yes Hx Cerebrovascular Accident: No Hx Headaches: Yes Hx Weakness: Yes Review of Systems Eye: Denies: eye pain, blurred vision ENT: Denies: ear pain, nose congestion, throat swelling Respiratory: Denies: cough, shortness of breath Cardiovascular: Denies: chest pain, palpitations Gastrointestinal: Denies: abdominal pain, diarrhea, nausea, vomiting Musculoskeletal: Denies: back pain, joint pain Skin: Denies: rash Neurological: Denies: headache, numbness Endocrine: Denies: increased thirst, increased urine Hematologic/Lymphatic: Denies: easy bruising All Other Systems: negative except mentioned in HPI Physical Exam Vital Signs Date Time Temp Pulse Resp B/P (MAP) Pulse Ox O2 Delivery O2 Flow Rate FiO2 06/01/19 04:19 98.1 66 16 91/ 94 Room Air Vitals unremarkable Sp02 EP Interpretation: reviewed, normal General Appearance: well appearing, no apparent distress, alert Head: normocephalic, atraumatic Eyes: bilateral eye PERRL, bilateral eye EOMI ENT: hearing grossly normal, normal pharynx Neck: full range of motion, supple, no meningismus, other - On the right side of the nape of the back of the neck, there is an fluctuant indurated area about 2 to 3 cm. When I squeeze on it there is some purulent discharge. Respiratory: chest non-tender, lungs clear, normal breath sounds Cardiovascular #1: regular rate, rhythm, no murmur Gastrointestinal: normal bowel sounds, non tender, no mass, no organomegaly, no bruit, non-distended Musculoskeletal: back normal, gait/station normal, normal range of motion Psychiatric: mood/affect normal Procedures Incision and Drainage Incision and Drainage : Consent: Verbal Site: Neck Blade Size: 11 I & D Procedure: betadine prep, sterile drapes applied, sterile dressing applied, gauze wick placed Wound Location: neck Anesthesia: Lidocaine w/ Epi Volume Anesthetic (ccs): 4 Sling Applied?: Yes Patient Tolerated: Well Complications: None Progress Local anesthetic with 1% lidocaine without epinephrine. I made an incision over the old site. I extended a little bit. I opened it up with a Noy forcep and broke up any loculated area. Wound was irrigated. Small amount of pus expressed. I packed it with iodoform gauze. Patient tolerated procedure without any problem. Medical Decision Making Diagnostic Impression: Primary Impression: Abscess ER Course This patient presents with an abscess to the neck. No evidence of necrotizing fasciitis or foreign body. Will discharge home with follow-up in 2 to 3 days. Last Vital Signs Date Time Temp Pulse Resp B/P (MAP) Pulse Ox O2 Delivery O2 Flow Rate FiO2 06/01/19 04:28 98.1 80 17 135/88 97 Room Air Status: improved Disposition: HOME, SELF-CARE Condition: Stable Scripts Hydrocodone/Acetaminophen 5-325* (HYDROCODONE/ACETAMINOPHEN 5-325*) 1 Each Tablet 1 TAB ORAL Q6H PRN for For Pain, #15 TAB 0 Refills Prov: Oziel Escobar MD 06/01/19 Patient Instructions: Abscess Additional Instructions: Keep wound clean. Clean with hydrogen peroxide. Follow-up in 2-3 days for recheck and packing removal. Return if symptoms worsen. Continue with your antibiotics. Oziel Escobar MD Jun 01, 2019 04:43
[2019-06-01] MEDS ORDERED: HYDROcodone/Acetamin 5/325 tab ORAL ONE (04:45)
[2019-06-01 04:50] VITALS: BP 136/80
--- NOTE | 2019-06-01 04:50 | NUR ---
ER DISCHARGE NOTE: Patient is cleared to be discharged per ERMD, pt is aox4, on room air, with stable vital signs. pt was given dc and prescription instructions, pt was able to verbalize understanding, pt id band removed without complications. pt is able to ambulate with steady gait. pt took all belongings.
== END 2019-06-01 04:50 | disposition home or self-care (01) ==
LOC: EMR 04:37
DX: L02.11 Cutaneous abscess of neck (principal); I10 Essential (primary) hypertension; E11.9 Type 2 diabetes mellitus without complications; Z88.0 Allergy status to penicillin
CPT/HCPCS: 10060; Z7502; 99283

== ENCOUNTER 2019-06-04 02:05 | Emergency (ER) | payer OTHER ==
[~2019-06-04] VITALS: Ht 172.7 cm; Wt 131.5 kg
[~2019-06-04 02:05] MED LIST changes: +HYDROCODON-ACE1 EA15 ORAL
[2019-06-04 02:27] VITALS: BP 143/85
--- NOTE | 2019-06-04 02:27 | NUR ---
ED Nurse Note: PT AMBULATED TO ED C/O OF ABCESS ON HIS NAPE WITH DRIED BLOOD NOTED. PT STATES "I WAS CLEANING IT WITH HYDROPEROXIDE AND THE DRESSING BROKE OFF, A DOCTOR HERE TOLD ME TO FOLLOW UP". PT WAS HERE 2 DAYS AGO WITH SAME SYMPTOMS. HAS HX OF DM AND HTN. ALERT AND ORIENTED, VERBALLY RESPONSIVE. NO SOB. BREATHING EVEN AND UNLABORED. AFEBRILE.
[2019-06-04] MEDS ORDERED: BACTRIM DS TAB1 EAC1 ORAL (02:53)
[2019-06-04 03:15] VITALS: BP 143/85
--- NOTE | 2019-06-04 03:15 | NUR ---
ED Nurse Note: Pt cleared by ermd for discharge. DC instructions/prescription was given and explained to pt and verbalized understanding of teachings. All medical devicEs such as ID band removed. Pt is AAO x4, ambulatory and left with all personal belongings.
--- NOTE | 2019-06-04 21:43 | Emergency Room Report ---
History of Present Illness General Chief Complaint: Skin Rash/Abscess Source: Patient Present Illness HPI Patient is a 54-year-old male presented for wound check. Patient had recent incision and drainage of abscess to the back of his head. He had been taking Bactrim. He is allergic to penicillin. He denies any fever. He reports having prior history of diabetes. He reports having some slight continued drainage from the wound. Denies any increase in swelling. Allergies: Coded Allergies: PENICILLINS (Verified Allergy, Intermediate, Rash, 05/14/13) Patient History Past Medical History: see triage record Reviewed Nursing Documentation: PMH: Agreed; PSxH: Agreed Nursing Documentation-PMH Past Medical History: No History, Except For Hx Cardiac Problems: Yes Hx Hypertension: Yes Hx Pacemaker: No Hx Asthma: No Hx COPD: No Hx Diabetes: Yes Hx Cancer: No Hx Gastrointestinal Problems: Yes Hx Dialysis: No Hx Neurological Problems: Yes Hx Cerebrovascular Accident: No Hx Headaches: Yes Hx Weakness: Yes Review of Systems All Other Systems: negative except mentioned in HPI Physical Exam Vital Signs Date Time Temp Pulse Resp B/P (MAP) Pulse Ox O2 Delivery O2 Flow Rate FiO2 06/04/19 02:21 97.9 73 15 143/85 (104) 96 Room Air General Appearance: well appearing, no apparent distress, alert, GCS 15, obese Head: atraumatic ENT: hearing grossly normal, normal voice Neck: full range of motion, supple Respiratory: no respiratory distress, speaking full sentences Cardiovascular #1: normal inspection Musculoskeletal: normal inspection Neurologic: normal inspection, alert, oriented x3, responsive, normal gait Psychiatric: mood/affect normal Skin: other - Slight continued drainage from abscess. Medical Decision Making Diagnostic Impression: Primary Impression: Wound check, abscess ER Course Patient presented for wound check. Differential diagnosis included was not limited to infected wound, nonhealed wound, neuroma, healed wound. Patient was noted to have continued drainage from abscess. This was cleansed and patient was noted to have some continued slight purulent material. His antibiotics were continued. Patient was to follow-up with primary care physician for wound check in the next 2 days. He is advised to maintain his diabetic diet and to return if any worsening or fever. Last Vital Signs Date Time Temp Pulse Resp B/P (MAP) Pulse Ox O2 Delivery O2 Flow Rate FiO2 06/04/19 03:15 97.9 79 15 143/85 96 Room Air Status: improved Disposition: HOME, SELF-CARE Condition: Stable Scripts Trimethoprim/Sulfamethoxazole 160/800* (BACTRIM DS TABLET*) 1 Each Tablet 1 TAB ORAL Q12H, #10 TAB 0 Refills Prov: Esteban Cervantes MD 06/04/19 Referrals: [facility],REFERRING (PCP) Patient Instructions: Wound Check Esteban Cervantes MD Jun 04, 2019 21:43
== END 2019-06-04 03:15 | disposition home or self-care (01) ==
LOC: EMR 02:50
DX: L02.811 Cutaneous abscess of head [any part, except face] (principal); Z48.01 Encounter for change or removal of surgical wound dressing; Z88.0 Allergy status to penicillin; I10 Essential (primary) hypertension; E11.9 Type 2 diabetes mellitus without complications
CPT/HCPCS: 99282

== ENCOUNTER → 2019-06-18 | Emergency (ER) | payer OTHER ==
[~2019-06-18] VITALS: Ht 172.7 cm; Wt 131.1 kg
[~2019-06-18] MED LIST changes: +CLEOCIN150 MG ORAL; +IBU800 MG PO
[2019-06-18 12:40] VITALS: BP 158/101
--- NOTE | 2019-06-18 12:40 | NUR ---
ED Nurse Note: Reports given to DIMPLE Henry
--- NOTE | 2019-06-18 12:48 | Emergency Room Report ---
History of Present Illness General Chief Complaint: Skin Rash/Abscess Source: Medical Record Present Illness HPI 54-year-old male with history of diabetes here complaining of a cyst in the back of neck. Patient was seen at [facility] couple weeks ago for an abscess in the scalp and it was drained and treated with antibiotics. Patient was given Bactrim at the time. Patient is allergic to penicillin. Patient has an upcoming appointment with primary care next Saturday. Reports that he believes that he keeps getting bit by an insect. There is a small cyst noted on posterior neck without any abscess formation. Patient is up-to-date with tetanus shot. Denies fever and chills, rating the pain 7 out of 10 without radiation. Denies chest pain, shortness of breath, palpitation, and other associated symptoms. Allergies: Coded Allergies: PENICILLINS (Verified Allergy, Intermediate, Rash, 05/14/13) Patient History Past Medical History: see triage record Past Surgical History: unable to obtain Pertinent Family History: none Immunizations: UTD Reviewed Nursing Documentation: PMH: Agreed; PSxH: Agreed Nursing Documentation-PMH Past Medical History: No History, Except For Hx Cardiac Problems: Yes Hx Hypertension: Yes Hx Pacemaker: No Hx Asthma: No Hx COPD: No Hx Diabetes: Yes Hx Cancer: No Hx Gastrointestinal Problems: Yes Hx Dialysis: No Hx Neurological Problems: Yes Hx Cerebrovascular Accident: No Hx Headaches: Yes Hx Weakness: Yes Review of Systems All Other Systems: negative except mentioned in HPI Physical Exam Vital Signs Date Time Temp Pulse Resp B/P (MAP) Pulse Ox O2 Delivery O2 Flow Rate FiO2 06/18/19 12:39 98.2 85 18 158/101 (120) 95 Room Air Sp02 EP Interpretation: reviewed, normal General Appearance: no apparent distress, alert, GCS 15, non-toxic Head: normocephalic, atraumatic Eyes: bilateral eye normal inspection, bilateral eye PERRL ENT: hearing grossly normal, normal pharynx, no angioedema, normal voice Neck: full range of motion, supple/symm/no masses Respiratory: chest non-tender, lungs clear, normal breath sounds, no rhonchi, no wheezing, speaking full sentences Cardiovascular #1: regular rate, rhythm, no edema, no murmur, normal capillary refill Cardiovascular #2: 2+ carotid (R), 2+ carotid (L) Gastrointestinal: normal bowel sounds, non tender, soft, non-distended, no guarding, no rebound Genitourinary: no CVA tenderness Musculoskeletal: back normal, digits/nails normal, gait/station normal, normal range of motion Neurologic: alert, oriented x3, responsive, motor strength/tone normal, sensory intact, speech normal Psychiatric: normal inspection, judgement/insight normal Skin: other - Infected cyst posterior neck without abscess formation Lymphatic: no adenopathy Medical Decision Making PA Attestation All my diagnosis and treatment plans were reviewed ad discussed with my supervising physician Dr. Cervantes Diagnostic Impression: Primary Impression: Cyst of neck ER Course 54-year-old male with history of diabetes here complaining of a cyst in the back of neck. Patient was seen at [facility] couple weeks ago for an abscess in the scalp and it was drained and treated with antibiotics. Patient was given Bactrim at the time. Patient is allergic to penicillin. Patient has an upcoming appointment with primary care next Saturday. Reports that he believes that he keeps getting bit by an insect. There is a small cyst noted on posterior neck without any abscess formation. Patient is up-to-date with tetanus shot. Denies fever and chills, rating the pain 7 out of 10 without radiation. Denies chest pain, shortness of breath, palpitation, and other associated symptoms. Ddx considered but are not limited to : Cellulitis, cyst, superficial infection , abscess Vital signs: are WNL, pt. is afebrile H&PE are most consistent with: Neck cyst ORDERS: Clindamycin ED INTERVENTIONS:wound clean DISCHARGE: At this time pt. is stable for d/c to home. Will provide printed patient care instructions, and any necessary prescriptions. Care plan and follow up instructions have been discussed with the patient prior to discharge. Advised the patient to avoid irritating the affected area and does not need any drainage as it has not turned into abscess. Also follow-up with her primary care provider and referred to wound care. If worsening symptoms return to the emergency room. Last Vital Signs Date Time Temp Pulse Resp B/P (MAP) Pulse Ox O2 Delivery O2 Flow Rate FiO2 06/18/19 12:39 98.2 85 18 158/101 (120) 95 Room Air Disposition: HOME, SELF-CARE Condition: Stable Scripts Ibuprofen (Ibu) 800 Mg Tablet 800 MG PO TID, #30 TAB Prov: Sahelimoghavami,Nahal PA 06/18/19 Clindamycin HCl (Clindamycin HCl) 300 Mg Capsule 300 MG ORAL Q6H for 7 Days, #28 CAP Prov: Abbie Mitchell 06/18/19 Patient Instructions: Abscess, Insect Bite, [id number] Additional Instructions: Take medication as directed, avoid popping the affected area as it is right now cyst and does not turn into an abscess however irritation of the area can turn the wound into an abscess. Follow-up with your primary care physician. If worsening symptoms return to the emergency room Abbie Mitchell Jun 18, 2019 12:48
== END | disposition home or self-care (01) ==
LOC: EMR 13:14
DX: L72.9 Follicular cyst of the skin and subcutaneous tissue, unspecified (principal); I10 Essential (primary) hypertension; E11.9 Type 2 diabetes mellitus without complications; Z88.0 Allergy status to penicillin
CPT/HCPCS: 99282

== ENCOUNTER → 2019-07-22 | Emergency (ER) | payer OTHER ==
[~2019-07-22] VITALS: Ht 172.7 cm; Wt 133.8 kg
[~2019-07-22] MED LIST changes: +AMLODIPINE-VAL1 EAC2 PO; +ASPIR 8181 MG ORAL; +ATORVASTATIN CA40 MG ORAL; +CIPROFLOXACIN500 M2 ORAL; +DiphenhydrAMINE 50mg/ml Inj IVP ONE; +FAMOTIDINE20 MG ORAL; +Hydromorphone 0.5mg/0.5ml inj IVP ONE; +IBUPROFEN200 M2 ORAL; +Ketorolac 30mg Inj IV ONE; +Ketorolac 30mg Inj ONE; +METRONIDAZOLE500 MG ORAL; +Morphine Sulfate 4mg/ml Inj (IV USE ONLY) ONE; +Omnipaque-300 100ml vial INJ PRN; +SYNJARDY 12.5-1 EACH PO; +TRULICITY1.5 MG/0.5 SQ; +WELLBUTRIN SR150 M1 PO; +ZOFRAN4 M3 ORAL; +ZOFRAN4 MG ORAL
--- NOTE | 2019-07-22 13:25 | NUR ---
ED Nurse Note: Patient walked into ED from home c/o abdominal pain sicne this morning, after eating some food last night. patient reports he vomited once around 9AM. patient reports pain is on the upper gastric middle, periumbilical area. patient is alert awake x4 ambulatory, breathing unlabored and even, speaking in full sentences.
[2019-07-22 13:46] VITALS: BP 172/107
--- NOTE | 2019-07-22 13:49 | Emergency Room Report ---
History of Present Illness General Chief Complaint: Abdominal Pain Source: Patient Present Illness HPI 54-year-old male history of gallstones history of hypertension, diabetes presents with diffuse abdominal pain since 9 AM, no aggravating alleviating factors, patient has had no nausea vomiting no diarrhea, he endorses a diffuse ache moderate intensity, he endorses some chills, no chest pain no shortness of breath patient presents for evaluation Allergies: Coded Allergies: PENICILLINS (Verified Allergy, Intermediate, Rash, 07/22/19) Patient History Past Medical History: see triage record Reviewed Nursing Documentation: PMH: Agreed; PSxH: Agreed Nursing Documentation-PMH Past Medical History: No History, Except For Hx Cardiac Problems: Yes Hx Hypertension: Yes Hx Pacemaker: No Hx Asthma: No Hx COPD: No Hx Diabetes: Yes Hx Cancer: No Hx Gastrointestinal Problems: Yes Hx Dialysis: No Hx Neurological Problems: Yes Hx Cerebrovascular Accident: No Hx Headaches: Yes Hx Weakness: Yes Review of Systems All Other Systems: negative except mentioned in HPI Physical Exam Vital Signs Date Time Temp Pulse Resp B/P (MAP) Pulse Ox O2 Delivery O2 Flow Rate FiO2 07/22/19 13:19 98.4 65 18 164/96 (118) 97 Room Air Sp02 EP Interpretation: reviewed, normal General Appearance: well appearing, no apparent distress, alert Head: normocephalic, atraumatic Eyes: bilateral eye PERRL, bilateral eye EOMI ENT: uvula midline, moist mucus membranes Neck: supple, thyroid normal, supple/symm/no masses Respiratory: lungs clear, no respiratory distress, no retraction, no accessory muscle use Cardiovascular #1: normal peripheral pulses, regular rate, rhythm, no edema, no gallop, no murmur Gastrointestinal: non tender, soft, no guarding, no rebound, other - Morbidly obese Musculoskeletal: normal inspection Neurologic: alert, oriented x3 Psychiatric: mood/affect normal Skin: no rash, warm/dry Medical Decision Making Diagnostic Impression: Primary Impression: Abdominal pain Qualified Codes: R10.84 - Generalized abdominal pain Additional Impression: Cannabinoid hyperemesis syndrome ER Course 54-year-old male presents with vague abdominal pain, differential diagnosis includes gastritis, diverticulitis, appendicitis CT exam is negative for any acute pathology except for gallstones, patient's pain is not close to gallbladder, patient also positive marijuana use on drug screen Counseled patient patient feels better after administration of dilaudid Repeat abdominal exam soft non tender Dispo home w/ return precautions Laboratory Tests Test 07/22/19 13:43 07/22/19 15:49 White Blood Count 9.2 K/UL (4.8-10.8) Red Blood Count 5.34 M/UL (4.70-6.10) Hemoglobin 15.5 G/DL (14.2-18.0) Hematocrit 48.4 % (42.0-52.0) Mean Corpuscular Volume 91 FL (80-99) Mean Corpuscular Hemoglobin 28.9 PG (27.0-31.0) Mean Corpuscular Hemoglobin Concent 31.9 G/DL (32.0-36.0) L Red Cell Distribution Width 12.2 % (11.6-14.8) Platelet Count 227 K/UL (150-450) Mean Platelet Volume 6.6 FL (6.5-10.1) Neutrophils (%) (Auto) 64.6 % (45.0-75.0) Lymphocytes (%) (Auto) 26.3 % (20.0-45.0) Monocytes (%) (Auto) 5.8 % (1.0-10.0) Eosinophils (%) (Auto) 2.2 % (0.0-3.0) Basophils (%) (Auto) 1.1 % (0.0-2.0) Sodium Level 137 MMOL/L (136-145) Potassium Level 3.9 MMOL/L (3.5-5.1) Chloride Level 101 MMOL/L (98-107) Carbon Dioxide Level 26 MMOL/L (21-32) Anion Gap 10 mmol/L (5-15) Blood Urea Nitrogen 15 mg/dL (7-18) Creatinine 1.0 MG/DL (0.55-1.30) Estimate Glomerular Filtration Rate > 60 mL/min (>60) Glucose Level 251 MG/DL (74-106) H Calcium Level 8.9 MG/DL (8.5-10.1) Total Bilirubin 0.5 MG/DL (0.2-1.0) Aspartate Amino Transferase (AST) 15 U/L (15-37) Alanine Aminotransferase (ALT) 31 U/L (12-78) Alkaline Phosphatase 176 U/L (46-116) H Troponin I 0.000 ng/mL (0.000-0.056) Total Protein 7.5 G/DL (6.4-8.2) Albumin 3.5 G/DL (3.4-5.0) Globulin 4.0 g/dL Albumin/Globulin Ratio 0.9 (1.0-2.7) L Lipase 198 U/L (73-393) Urine Color Pale yellow Urine Appearance Clear Urine pH 5 (4.5-8.0) Urine Specific [place] 1.015 (1.005-1.035) Urine Protein 1+ (NEGATIVE) H Urine Glucose (UA) 4+ (NEGATIVE) H Urine Ketones 2+ (NEGATIVE) H Urine Blood Negative (NEGATIVE) Urine Nitrite Negative (NEGATIVE) Urine Bilirubin Negative (NEGATIVE) Urine Urobilinogen Normal MG/DL (0.0-1.0) Urine Leukocyte Esterase Negative (NEGATIVE) Urine RBC 0-2 /HPF (0 - 0) H Urine WBC 0-2 /HPF (0 - 0) Urine Squamous Epithelial Cells None /LPF (NONE/OCC) Urine Bacteria Few /HPF (NONE) Urine Fine Granular Casts 0-2 /LPF (NONE) H Urine Opiates Screen Negative (NEGATIVE) Urine Barbiturates Screen Negative (NEGATIVE) Phencyclidine (PCP) Screen Negative (NEGATIVE) Urine Amphetamines Screen Negative (NEGATIVE) Urine Benzodiazepines Screen Negative (NEGATIVE) Urine Cocaine Screen Negative (NEGATIVE) Urine Marijuana (THC) Screen Positive (NEGATIVE) H EKG Diagnostic Results EKG Time: 13:59 EP Interpretation: NSR, rate 71, QTc [address] elevations, left axis deviation Rhythm Strip Diag. Results Rhythm Strip Time: 14:41 EP Interpretation: yes Rate: 70 Rhythm: NSR, no PVC's, no ectopy CT/MRI/US Diagnostic Results CT/MRI/US Diagnostic Results : Impression Procedure: CT Abdomen Pelvis w/Contrast Clinical Indication: Abdominal pain, diffuse since 9:00 AM Technique: No oral contrast utilized, per emergency room physician request IV administration nonionic contrast. Venous phase spiral acquisition obtained through the abdomen and pelvis. Multiplanar reconstructions were generated. Total dose length product 3620 mGycm. CTDIvol(s) 57 mGy. Dose reduction achieved using automated exposure control Comparison: 12/09/2011 noncontrast study Findings: Assessment of the GI tract is limited, due to lack of enteric contrast administration. The appendix is normal. There is no evidence of colonic diverticulosis or diverticulitis. No small bowel distention. No free or loculated intraperitoneal gas or fluid is evident. Distal esophagus, stomach, duodenum are unremarkable. The gallbladder contains multiple gallstones. The liver, bile ducts, pancreas, spleen, adrenals, kidneys are all unremarkable. No retroperitoneal or mesenteric mass or adenopathy. There are prominent but not frankly enlarged pelvic nodes. No pelvic mass demonstrated. The bladder is unremarkable. No significant bony abnormality demonstrated. There are mild degenerative proliferative changes of the lower thoracic and lumbar spine. The included lung bases are clear except for minimal atelectatic changes on the right. The heart is enlarged. Impression: Limited assessment of the GI tract, due to lack of enteric contrast administration Cholelithiasis, also previously reported No acute findings Cardiomegaly Mild degenerative spondylosis The CT scanner at [facility] is accredited by the [employer] and the scans are performed using protocols designed to limit radiation exposure to as low as reasonably achievable to attain images of sufficient resolution adequate for diagnostic evaluation. Dictated By: Dewayne Cardoza MD Electronically Signed By: Dewayne Cardoza MD Signed Date/Time 07/22/19 4540 CC: Damaso Corral MD Last Vital Signs Date Time Temp Pulse Resp B/P (MAP) Pulse Ox O2 Delivery O2 Flow Rate FiO2 07/22/19 13:46 98.4 68 14 172/107 100 Room Air Disposition: HOME, SELF-CARE Condition: Stable Scripts Ondansetron (Zofran) 4 Mg Tablet 4 MG ORAL Q8H PRN for Nausea & Vomiting, #10 TAB 0 Refills Prov: Damaso Corral MD 07/22/19 Famotidine* (Pepcid 20mg tablet*) 20 Mg Tablet 20 MG ORAL TWICE A DAY, #60 TAB 0 Refills Prov: Damaso Corral MD 07/22/19 [facility] Patient Instructions: Abdominal Pain, Adult Additional Instructions: The patient was provided with discharge instructions, notified to follow-up with a primary care doctor and or specialist in the next 24-48 hours, and to return to the ED if they have worsening of their symptoms. Please note that this report is being documented using 6connect technology. This can lead to erroneous entry secondary to incorrect interpretation by the dictating instrument. Damaso Corral MD Jul 22, 2019 13:49
[2019-07-22 13:52] LABS: BASOPHILS % (AUTO) 1.1 % (0.0-2.0); EOSINOPHILS % (AUTO) 2.2 % (0.0-3.0); HEMATOCRIT 48.4 % (42.0-52.0); HEMOGLOBIN 15.5 G/DL (14.2-18.0); LYMPHOCYTES % (AUTO) 26.3 % (20.0-45.0); MEAN CORPUSCULAR VOLUME 91 FL (80-99); MONOCYTES % (AUTO) 5.8 % (1.0-10.0); NEUTROPHILS % (AUTO) 64.6 % (45.0-75.0); PLATELET COUNT 227 K/UL (150-450); RED BLOOD COUNT 5.34 M/UL (4.70-6.10); RED CELL DISTRIBUTION WIDTH 12.2 % (11.6-14.8); WHITE BLOOD COUNT 9.2 K/UL (4.8-10.8)
[2019-07-22] MEDS: Acetaminophen 500mg (ES) tab ORAL ONE ×2 (13:54→14:00)
[2019-07-22 14:12] LABS: ANION GAP 10 mmol/L (5-15); BLOOD UREA NITROGEN 15 mg/dL (7-18); CALCIUM 8.9 MG/DL (8.5-10.1); CARBON DIOXIDE 26 MMOL/L (21-32); CHLORIDE 101 MMOL/L (98-107); POTASSIUM 3.9 MMOL/L (3.5-5.1); SODIUM 137 MMOL/L (136-145)
[2019-07-22 14:16] LABS: ALANINE AMINOTRANSFERASE 31 U/L (12-78); ALBUMIN 3.5 G/DL (3.4-5.0); ALBUMIN/GLOBULIN RATIO 0.9 (1.0-2.7); ALKALINE PHOSPHATASE 176 U/L (46-116); ASPARTATE AMINO TRANSFERASE 15 U/L (15-37); BILIRUBIN,TOTAL 0.5 MG/DL (0.2-1.0)
--- NOTE | 2019-07-22 14:50 | NUR ---
ED Nurse Note: patient taken to CT scan in stable condition
--- NOTE | 2019-07-22 15:10 | NUR ---
ED Nurse Note: patient taken back to his bed in stable condition on full service supervisor. +
[2019-07-22 15:45] VITALS: BP 158/98
[2019-07-22 16:00] LABS: APPEARANCE,URINE CLEAR; BILIRUBIN, URINE NEGATIVE (NEGATIVE); COLOR,URINE PALE YELLOW; GLUCOSE, URINE (UA) 4+ (NEGATIVE); KETONES,URINE 2+ (NEGATIVE); LEUKOCYTE ESTERASE ,URINE NEGATIVE (NEGATIVE); NITRITE,URINE NEGATIVE (NEGATIVE); PH,URINE 5 (4.5-8.0); PROTEIN,URINE 1+ (NEGATIVE); UROBILINOGEN,URINE NORMAL MG/DL (0.0-1.0)
--- NOTE | 2019-07-22 16:02 | Diagnostic Imaging Report ---
Clinical Indication: Abdominal pain, diffuse since 9:00 AM Technique: No oral contrast utilized, per emergency room physician request IV administration nonionic contrast. Venous phase spiral acquisition obtained through the abdomen and pelvis. Multiplanar reconstructions were generated. Total dose length product 3620 mGycm. CTDIvol(s) 57 mGy. Dose reduction achieved using automated exposure control Comparison: 12/09/2011 noncontrast study Findings: Assessment of the GI tract is limited, due to lack of enteric contrast administration. The appendix is normal. There is no evidence of colonic diverticulosis or diverticulitis. No small bowel distention. No free or loculated intraperitoneal gas or fluid is evident. Distal esophagus, stomach, duodenum are unremarkable. The gallbladder contains multiple gallstones. The liver, bile ducts, pancreas, spleen, adrenals, kidneys are all unremarkable. No retroperitoneal or mesenteric mass or adenopathy. There are prominent but not frankly enlarged pelvic nodes. No pelvic mass demonstrated. The bladder is unremarkable. No significant bony abnormality demonstrated. There are mild degenerative proliferative changes of the lower thoracic and lumbar spine. The included lung bases are clear except for minimal atelectatic changes on the right. The heart is enlarged. Impression: Limited assessment of the GI tract, due to lack of enteric contrast administration Cholelithiasis, also previously reported No acute findings Cardiomegaly Mild degenerative spondylosis The CT scanner at [facility] is accredited by the [employer] and the scans are performed using protocols designed to limit radiation exposure to as low as reasonably achievable to attain images of sufficient resolution adequate for diagnostic evaluation.
[2019-07-22 16:59] VITALS: BP 159/86
--- NOTE | 2019-07-22 18:21 | NUR ---
ED Nurse Note: patient is resting in bed with his eyes closed, vitals stable. patient is cleared for discharge per ERMD, patient requests "can I stay here for 20 minutes." notified to [address] Corral, will wait for 20 minutes then DC.
[2019-07-22 18:41] VITALS: BP 152/82
--- NOTE | 2019-07-22 18:41 | NUR ---
ER DISCHARGE NOTE: Patient is cleared to be discharged per ERMD DR NEWTON , pt is aox4, on room air, with stable vital signs. pt was given dc and prescription instructions, pt was able to verbalize understanding, pt id band and iv site removed without complications. pt is able to ambulate with steady gait. pt took all belongings.
== END | disposition home or self-care (01) ==
LOC: EMR 14:07
DX: R10.84 Generalized abdominal pain (principal); F12.188 Cannabis abuse with other cannabis-induced disorder; R11.10 Vomiting, unspecified; I10 Essential (primary) hypertension; E11.9 Type 2 diabetes mellitus without complications; Z88.0 Allergy status to penicillin
CPT/HCPCS: 36415; 74177; 80053; 80307; 81003; 83690; 84484; 85025; 93005; 96361; 96374; 96375; 96376; J1170; J1200; J1885; J2405; Q9967; Z7502; 99284

== ENCOUNTER 2019-07-24 11:24 | Emergency (ER) | payer OTHER ==
[~2019-07-24] VITALS: Ht 172.7 cm; Wt 136.1 kg
[~2019-07-24 11:24] MED LIST changes: -AMLODIPINE-VAL1 EAC2 PO; -ASPIR 8181 MG ORAL; -ATORVASTATIN CA40 MG ORAL; -CIPROFLOXACIN500 M2 ORAL; -DiphenhydrAMINE 50mg/ml Inj IVP ONE; -Hydromorphone 0.5mg/0.5ml inj IVP ONE; -IBUPROFEN200 M2 ORAL; -Ketorolac 30mg Inj IV ONE; -Ketorolac 30mg Inj ONE; -METRONIDAZOLE500 MG ORAL; -Morphine Sulfate 4mg/ml Inj (IV USE ONLY) ONE; -Omnipaque-300 100ml vial INJ PRN; -SYNJARDY 12.5-1 EACH PO; -TRULICITY1.5 MG/0.5 SQ; -WELLBUTRIN SR150 M1 PO; -ZOFRAN4 M3 ORAL
[2019-07-24 11:45] VITALS: BP 157/99
[2019-07-24] MEDS ORDERED: FAMOTIDINE20 MG ORAL ×2 (11:45)
[2019-07-24] MEDS ORDERED: ATORVASTATIN CA40 MG ORAL (11:45)
[2019-07-24] MEDS ORDERED: ASPIR 8181 MG ORAL (11:45)
[2019-07-24] MEDS ORDERED: WELLBUTRIN SR150 M1 PO (11:45)
[2019-07-24] MEDS ORDERED: AMLODIPINE-VAL1 EAC2 PO (11:45)
[2019-07-24] MEDS ORDERED: ZOFRAN4 M3 ORAL (11:45)
[2019-07-24] MEDS ORDERED: IBUPROFEN200 M2 ORAL (11:45)
[2019-07-24] MEDS ORDERED: TRULICITY1.5 MG/0.5 SQ (11:45)
--- NOTE | 2019-07-24 11:45 | NUR ---
ED Nurse Note: pt walked in to ED with family member due to right side abdominal pain with nausea. denies vomiting or diarrheas. ambulatory with steady gait. AAO x4. respirations even and non-labored noted. skin warm to touch. no open wound noted. will wait for the further order.
[2019-07-24] MEDS ORDERED: Ketorolac 30mg Inj IV ONE (12:00)
[2019-07-24] MEDS ORDERED: Morphine Sulfate 4mg/ml Inj (IV USE ONLY) IVP ONE (12:00)
--- NOTE | 2019-07-24 12:09 | NUR ---
ED Nurse Note: US at the bed side.
[2019-07-24 12:51] LABS: BASOPHILS % (AUTO) 0.5 % (0.0-2.0); EOSINOPHILS % (AUTO) 0.1 % (0.0-3.0); HEMOGLOBIN 15.8 G/DL (14.2-18.0); LYMPHOCYTES % (AUTO) 8.4 % (20.0-45.0); MEAN CORPUSCULAR VOLUME 91 FL (80-99); MONOCYTES % (AUTO) 6.3 % (1.0-10.0); NEUTROPHILS % (AUTO) 84.7 % (45.0-75.0); PLATELET COUNT 210 K/UL (150-450); RED BLOOD COUNT 5.27 M/UL (4.70-6.10); RED CELL DISTRIBUTION WIDTH 12.6 % (11.6-14.8); WHITE BLOOD COUNT 15.9 K/UL (4.8-10.8)
[2019-07-24 13:00] VITALS: BP 106/59
[2019-07-24 13:00] LABS: ANION GAP 4 mmol/L (5-15); BLOOD UREA NITROGEN 12 mg/dL (7-18); CALCIUM 8.6 MG/DL (8.5-10.1); CARBON DIOXIDE 33 MMOL/L (21-32); CHLORIDE 97 MMOL/L (98-107); CREATININE 1.4 MG/DL (0.55-1.30); POTASSIUM 4.5 MMOL/L (3.5-5.1); SODIUM 134 MMOL/L (136-145)
[2019-07-24 13:10] LABS: ALANINE AMINOTRANSFERASE 27 U/L (12-78); ALBUMIN 2.8 G/DL (3.4-5.0); ALBUMIN/GLOBULIN RATIO 0.6 (1.0-2.7); ALKALINE PHOSPHATASE 100 U/L (46-116); ASPARTATE AMINO TRANSFERASE 14 U/L (15-37); BILIRUBIN,TOTAL 1.3 MG/DL (0.2-1.0)
[2019-07-24 13:12] LABS: BILIRUBIN,DIRECT 0.3 MG/DL (0.0-0.3)
[2019-07-24 13:32] LABS: APPEARANCE,URINE CLEAR; BILIRUBIN, URINE NEGATIVE (NEGATIVE); COLOR,URINE PALE YELLOW; GLUCOSE, URINE (UA) 4+ (NEGATIVE); KETONES,URINE 2+ (NEGATIVE); LEUKOCYTE ESTERASE ,URINE NEGATIVE (NEGATIVE); NITRITE,URINE NEGATIVE (NEGATIVE); PH,URINE 6 (4.5-8.0); PROTEIN,URINE 2+ (NEGATIVE); UROBILINOGEN,URINE NORMAL MG/DL (0.0-1.0)
--- NOTE | 2019-07-24 14:20 | Emergency Room Report ---
History of Present Illness General Chief Complaint: Abdominal Pain Source: Patient (Sae Wills MD) Present Illness HPI 54-year-old male presents ED for evaluation. Complaining of abdominal pain with nausea and vomiting. Started 2 days ago. States he was seen here 2 days ago with generalized abdominal pain. Had CT and had "gallstones" and was sent home. States he was prescribed medications. States they did not help. Pain is RUQ. 9 out of 10, nonradiating. Denies fevers or chills. No other aggravating relieving factors. Denies any other associated symptoms (Sae Wills MD) Allergies: Coded Allergies: PENICILLINS (Verified Allergy, Intermediate, Rash, 07/22/19) Patient History Past Medical History: DM, HTN Past Surgical History: none Pertinent Family History: none Social History: Denies: smoking, alcohol use, drug use Immunizations: UTD Reviewed Nursing Documentation: PMH: Agreed; PSxH: Agreed (Sae Wills MD) Nursing Documentation-PMH Hx Cardiac Problems: Yes Hx Hypertension: Yes Hx Pacemaker: No Hx Asthma: No Hx COPD: No Hx Diabetes: Yes Hx Cancer: No Hx Gastrointestinal Problems: Yes Hx Dialysis: No Hx Neurological Problems: Yes Hx Cerebrovascular Accident: No Hx Headaches: Yes Hx Weakness: Yes (Sae Wills MD) Review of Systems All Other Systems: negative except mentioned in HPI (Sae Wills MD) Physical Exam Vital Signs Date Time Temp Pulse Resp B/P (MAP) Pulse Ox O2 Delivery O2 Flow Rate FiO2 07/24/19 11:31 99.7 120 20 157/99 (118) 96 Room Air Sp02 EP Interpretation: reviewed, normal General Appearance: no apparent distress, alert, GCS 15, non-toxic, obese Head: normocephalic Eyes: bilateral eye normal inspection, bilateral eye PERRL ENT: normal ENT inspection Neck: normal inspection Respiratory: chest non-tender, lungs clear, normal breath sounds, speaking full sentences Cardiovascular #1: regular rate, rhythm, no edema Gastrointestinal: normal bowel sounds, soft, non-distended, no guarding, no rebound, tenderness - RUQ Genitourinary: normal inspection Musculoskeletal: back normal, normal range of motion, gait/station normal, non- tender Neurologic: alert, motor strength/tone normal, oriented x3, sensory intact, responsive, speech normal Psychiatric: normal inspection Skin: no rash Lymphatic: normal inspection (Sae Wills MD) Medical Decision Making Diagnostic Impression: Primary Impression: Cholecystitis Labs Test 07/24/19 12:26 07/24/19 13:20 White Blood Count 15.9 K/UL (4.8-10.8) Red Blood Count 5.27 M/UL (4.70-6.10) Hemoglobin 15.8 G/DL (14.2-18.0) Hematocrit 48.0 % (42.0-52.0) Mean Corpuscular Volume 91 FL (80-99) Mean Corpuscular Hemoglobin 30.0 PG (27.0-31.0) Mean Corpuscular Hemoglobin Concent 32.9 G/DL (32.0-36.0) Red Cell Distribution Width 12.6 % (11.6-14.8) Platelet Count 210 K/UL (150-450) Mean Platelet Volume 7.3 FL (6.5-10.1) Neutrophils (%) (Auto) 84.7 % (45.0-75.0) Lymphocytes (%) (Auto) 8.4 % (20.0-45.0) Monocytes (%) (Auto) 6.3 % (1.0-10.0) Eosinophils (%) (Auto) 0.1 % (0.0-3.0) Basophils (%) (Auto) 0.5 % (0.0-2.0) Sodium Level 134 MMOL/L (136-145) Potassium Level 4.5 MMOL/L (3.5-5.1) Chloride Level 97 MMOL/L (98-107) Carbon Dioxide Level 33 MMOL/L (21-32) Anion Gap 4 mmol/L (5-15) Blood Urea Nitrogen 12 mg/dL (7-18) Creatinine 1.4 MG/DL (0.55-1.30) Estimat Glomerular Filtration Rate > 60 mL/min (>60) Glucose Level 303 MG/DL (74-106) Calcium Level 8.6 MG/DL (8.5-10.1) Total Bilirubin 1.3 MG/DL (0.2-1.0) Direct Bilirubin 0.3 MG/DL (0.0-0.3) Aspartate Amino Transf (AST/SGOT) 14 U/L (15-37) Alanine Aminotransferase (ALT/SGPT) 27 U/L (12-78) Alkaline Phosphatase 100 U/L (46-116) Total Protein 7.7 G/DL (6.4-8.2) Albumin 2.8 G/DL (3.4-5.0) Globulin 4.9 g/dL Albumin/Globulin Ratio 0.6 (1.0-2.7) Lipase 99 U/L (73-393) Urine Color Pale yellow Urine Appearance Clear Urine pH 6 (4.5-8.0) Urine Specific [place] 1.010 (1.005-1.035) Urine Protein 2+ (NEGATIVE) Urine Glucose (UA) 4+ (NEGATIVE) Urine Ketones 2+ (NEGATIVE) Urine Blood 1+ (NEGATIVE) Urine Nitrite Negative (NEGATIVE) Urine Bilirubin Negative (NEGATIVE) Urine Urobilinogen Normal MG/DL (0.0-1.0) Urine Leukocyte Esterase Negative (NEGATIVE) Urine RBC 0-2 /HPF (0 - 0) Urine WBC 0-2 /HPF (0 - 0) Urine Squamous Epithelial Cells Occasional /LPF Urine Bacteria Occasional /HPF (NONE) (Sae Wills MD) ER Course Patient admitted to [facility] group Evaluation 3:30 PM, patient spoke with surgeon, states he does not want to be admitted to the hospital he has other things to take care of won't specify what. Knows he can did from an overwhelming infection. The patient has requested to leave the ED against medical advice. The patient reason(s) for leaving include, but are not limited to, the following: "I have other stuff to do." I believe this patient is of sound mind and competent to refuse medical care. The patient is responding and asking questions appropriately. The patient is oriented to person, place and time. The patient is not psychotic, delusional, suicidal, homicidal or hallucinating. The patient demonstrates a normal mental capacity to make decisions regarding their healthcare. The patient is clinically sober and does not appear to be under the influence of any illicit drugs at this time. The patient has been advised of the risks, in layman terms, of leaving AMA which include, but are not limited to , coma, permanent disability, loss of current lifestyle, delay in diagnosis. Alternatives have been offered - the patient remains steadfast in their wish to leave. The patient has been advised that should they change their mind they are welcome to return to this hospital, or any other, at any time. The patient understands that in no way does an AMA discharge mean that I do not want them to have the best medical care available. To this end, I have provided appropriate prescriptions, referrals, and discharge instructions. The patient did sign AMA paperwork. The above discussion was witnessed by another member of staff. We will provide patient with antibiotics to go home with, counseled patient if he gets worse to come back Patient is aware that the antibiotics may not work Laboratory Tests Test 07/24/19 12:26 07/24/19 13:20 White Blood Count 15.9 K/UL (4.8-10.8) H Red Blood Count 5.27 M/UL (4.70-6.10) Hemoglobin 15.8 G/DL (14.2-18.0) Hematocrit 48.0 % (42.0-52.0) Mean Corpuscular Volume 91 FL (80-99) Mean Corpuscular Hemoglobin 30.0 PG (27.0-31.0) Mean Corpuscular Hemoglobin Concent 32.9 G/DL (32.0-36.0) Red Cell Distribution Width 12.6 % (11.6-14.8) Platelet Count 210 K/UL (150-450) Mean Platelet Volume 7.3 FL (6.5-10.1) Neutrophils (%) (Auto) 84.7 % (45.0-75.0) H Lymphocytes (%) (Auto) 8.4 % (20.0-45.0) L Monocytes (%) (Auto) 6.3 % (1.0-10.0) Eosinophils (%) (Auto) 0.1 % (0.0-3.0) Basophils (%) (Auto) 0.5 % (0.0-2.0) Sodium Level 134 MMOL/L (136-145) L Potassium Level 4.5 MMOL/L (3.5-5.1) Chloride Level 97 MMOL/L (98-107) L Carbon Dioxide Level 33 MMOL/L (21-32) H Anion Gap 4 mmol/L (5-15) L Blood Urea Nitrogen 12 mg/dL (7-18) Creatinine 1.4 MG/DL (0.55-1.30) H Estimate Glomerular Filtration Rate > 60 mL/min (>60) Glucose Level 303 MG/DL (74-106) H Calcium Level 8.6 MG/DL (8.5-10.1) Total Bilirubin 1.3 MG/DL (0.2-1.0) H Direct Bilirubin 0.3 MG/DL (0.0-0.3) Aspartate Amino Transferase (AST) 14 U/L (15-37) L Alanine Aminotransferase (ALT) 27 U/L (12-78) Alkaline Phosphatase 100 U/L (46-116) Total Protein 7.7 G/DL (6.4-8.2) Albumin 2.8 G/DL (3.4-5.0) L Globulin 4.9 g/dL Albumin/Globulin Ratio 0.6 (1.0-2.7) L Lipase 99 U/L (73-393) Urine Color Pale yellow Urine Appearance Clear Urine pH 6 (4.5-8.0) Urine Specific [place] 1.010 (1.005-1.035) Urine Protein 2+ (NEGATIVE) H Urine Glucose (UA) 4+ (NEGATIVE) H Urine Ketones 2+ (NEGATIVE) H Urine Blood 1+ (NEGATIVE) H Urine Nitrite Negative (NEGATIVE) Urine Bilirubin Negative (NEGATIVE) Urine Urobilinogen Normal MG/DL (0.0-1.0) Urine Leukocyte Esterase Negative (NEGATIVE) Urine RBC 0-2 /HPF (0 - 0) H Urine WBC 0-2 /HPF (0 - 0) Urine Squamous Epithelial Cells Occasional /LPF Urine Bacteria Occasional /HPF (NONE) (Damaso Corral MD) Last Vital Signs Date Time Temp Pulse Resp B/P (MAP) Pulse Ox O2 Delivery O2 Flow Rate FiO2 07/24/19 11:45 120 20 Room Air 07/24/19 11:45 99.7 157/99 96 Status: improved (Sae Wills MD) Disposition: AGAINST MEDICAL ADVICE Condition: Stable Scripts Ciprofloxacin Hcl* (CIPROFLOXACIN HCL*) 500 Mg Tablet 500 MG ORAL Q12H, #14 TAB 0 Refills Prov: Damaso Corral MD 07/24/19 Metronidazole* (FLAGYL*) 500 Mg Tablet 500 MG ORAL THREE TIMES A DAY, #21 TAB Prov: Damaso Corral MD 07/24/19 Referrals: [facility],REFERRING (PCP) [facility]ovanny Bland. [facility] Patient Instructions: Abdominal Pain, Adult, Cholecystitis, [id number] Additional Instructions: The patient was provided with discharge instructions, notified to follow-up with a primary care doctor and or specialist in the next 24-48 hours, and to return to the ED if they have worsening of their symptoms. Please note that this report is being documented using [employer] technology. This can lead to erroneous entry secondary to incorrect interpretation by the dictating instrument. Sae Wills MD Jul 24, 2019 14:20 Damaso Corral MD Jul 24, 2019 14:59
[2019-07-24 15:00] VITALS: BP 103/66
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
--- NOTE | 2019-07-24 15:50 | NUR ---
ED Nurse Note: per pt, "had billing to take care, I can not stay." Dr. Corral notified.
[2019-07-24] MEDS ORDERED: CIPROFLOXACIN500 M2 ORAL (16:00)
[2019-07-24] MEDS ORDERED: METRONIDAZOLE500 MG ORAL (16:00)
--- NOTE | 2019-07-24 16:00 | NUR ---
ED Nurse Note: Risk include continued illness, worsening of sx, permanent disability and . also benefits included dx and tx of illness. the Pt is also assured that she may return to the ER at any time for tx.
[2019-07-24 16:10] VITALS: BP 128/53
--- NOTE | 2019-07-24 16:10 | NUR ---
AMA: SEE AMA FORM.
[2019-07-25] MEDS ORDERED: SYNJARDY 12.5-1 EACH PO (15:35)
== END 2019-07-24 16:10 | disposition left against medical advice (07) ==
LOC: EMR 12:09 → 4E 14:36 → UNDOADMIN 14:36 → EDBEDREQ 14:43 → EMR 16:10
DX: K81.9 Cholecystitis, unspecified (principal); I10 Essential (primary) hypertension; E11.9 Type 2 diabetes mellitus without complications; Z88.0 Allergy status to penicillin
CPT/HCPCS: 36415; 76700; 80053; 81003; 82248; 82962; 83690; 85025; 96365; 96367; 96375; Z7502; 99284

== ENCOUNTER 2019-07-25 14:02 | Inpatient (IN) | payer OTHER ==
[~2019-07-25] VITALS: Ht 172.7 cm; Wt 137.0 kg
[~2019-07-25 14:02] MED LIST changes: +AMLODIPINE-VAL1 EAC2 PO; +ASPIR 8181 MG ORAL; +ATORVASTATIN CA40 MG ORAL; +CIPROFLOXACIN500 M2 ORAL; +IBUPROFEN200 M2 ORAL; +METRONIDAZOLE500 MG ORAL; +TRULICITY1.5 MG/0.5 SQ; +WELLBUTRIN SR150 M1 PO; +ZOFRAN4 M3 ORAL
[2019-07-25 14:17] VITALS: BP 109/83
--- NOTE | 2019-07-25 14:17 | NUR ---
ED Nurse Note: Patient ambulated into ER from home with a c/o abdominal pain with nausea and vomiting for two days. Patient was here yesterday for same reason. Patient states a pain level of 8/10 in his right lower abdomen. Patient is AAOx4, vital signs are within normal limits. Patient has no s/s of respiratory or cardiac distress. Placed patient in gown and on reporter anchor.
--- NOTE | 2019-07-25 14:30 | NUR ---
ED Nurse Note: Xray is at bedside.
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
[2019-07-25 15:02] LABS: ANION GAP 5 mmol/L (5-15); BLOOD UREA NITROGEN 11 mg/dL (7-18); CARBON DIOXIDE 32 MMOL/L (21-32); CHLORIDE 98 MMOL/L (98-107); CREATININE 1.4 MG/DL (0.55-1.30); POTASSIUM 4.1 MMOL/L (3.5-5.1); SODIUM 135 MMOL/L (136-145)
[2019-07-25 15:03] LABS: BASOPHILS % (AUTO) 0.7 % (0.0-2.0); EOSINOPHILS % (AUTO) 0.5 % (0.0-3.0); HEMATOCRIT 49.8 % (42.0-52.0); HEMOGLOBIN 15.8 G/DL (14.2-18.0); LYMPHOCYTES % (AUTO) 17.1 % (20.0-45.0); MEAN CORPUSCULAR VOLUME 91 FL (80-99); MONOCYTES % (AUTO) 6.4 % (1.0-10.0); NEUTROPHILS % (AUTO) 75.3 % (45.0-75.0); PLATELET COUNT 246 K/UL (150-450); RED BLOOD COUNT 5.46 M/UL (4.70-6.10); RED CELL DISTRIBUTION WIDTH 12.3 % (11.6-14.8); WHITE BLOOD COUNT 13.3 K/UL (4.8-10.8)
[2019-07-25 15:07] LABS: ALANINE AMINOTRANSFERASE 25 U/L (12-78); ALBUMIN 2.8 G/DL (3.4-5.0); ALBUMIN/GLOBULIN RATIO 0.5 (1.0-2.7); ALKALINE PHOSPHATASE 109 U/L (46-116); ASPARTATE AMINO TRANSFERASE 13 U/L (15-37); BILIRUBIN,TOTAL 0.9 MG/DL (0.2-1.0)
--- NOTE | 2019-07-25 15:08 | NUR ---
ED Nurse Note: Patient son is bedside. Urine specimen done and sent to lab.
--- NOTE | 2019-07-25 15:21 | Diagnostic Imaging Report ---
EXAM: XR Chest, 1 View CLINICAL HISTORY: PAIN TECHNIQUE: Frontal view of the chest. COMPARISON: CXR of 12/31/[address] abdomen and pelvis of 07/22/19. FINDINGS: Lungs: Hypoventilatory exam. Subsegmental right basilar atelectasis. No clear consolidation. Pleural space: No pneumothorax. Heart: Mild cardiomegaly. Mediastinum: Unremarkable. Bones/joints: Unremarkable. IMPRESSION: Hypoventilatory exam. Subsegmental right basilar atelectasis. No clear consolidation.
[2019-07-25] MEDS ORDERED: SYNJARDY 12.5-1 EACH PO (15:35)
[2019-07-25 15:42] LABS: APPEARANCE,URINE CLEAR; BILIRUBIN, URINE NEGATIVE (NEGATIVE); COLOR,URINE PALE YELLOW; GLUCOSE, URINE (UA) 4+ (NEGATIVE); KETONES,URINE 3+ (NEGATIVE); LEUKOCYTE ESTERASE ,URINE NEGATIVE (NEGATIVE); NITRITE,URINE NEGATIVE (NEGATIVE); PH,URINE 6 (4.5-8.0); PROTEIN,URINE NEGATIVE (NEGATIVE); UROBILINOGEN,URINE NORMAL MG/DL (0.0-1.0)
--- NOTE | 2019-07-25 16:33 | NUR ---
ED Nurse Note: Telephoned endorsement to DIMPLE Mullins for continuity of care.
--- NOTE | 2019-07-25 16:40 | NUR ---
TRANSFER TO FLOOR: Patient transferred to Med-Surg as ordered, per Dr. Wills . Report given to Susanna. Belongings and medications given to Patient. Family informed of transfer.
--- NOTE | 2019-07-25 17:17 | Emergency Room Report ---
History of Present Illness General Chief Complaint: Abdominal Pain Source: Patient, Medical Record, PMD Present Illness HPI 54-year-old male presents ED for evaluation. Complaining of abdominal pain. Pain is up, 8 out of 10, localized to right upper quadrant. Nonradiating. Denies nausea or vomiting. Denies fevers or chills. Was seen here yesterday in ED. Diagnosed with cholecystitis and was subsequently admitted. Patient left AMA. Patient returns stating that pain did not resolve. No other aggravating or relieving factors. Denies any other associated symptoms Allergies: Coded Allergies: PENICILLINS (Verified Allergy, Intermediate, Rash, 07/22/19) Patient History Past Medical History: DM, HTN Past Surgical History: none Pertinent Family History: none Social History: Denies: smoking, alcohol use, drug use Immunizations: UTD Reviewed Nursing Documentation: PMH: Agreed; PSxH: Agreed Nursing Documentation-PMH Past Medical History: No History, Except For Hx Cardiac Problems: Yes Hx Hypertension: Yes Hx Pacemaker: No Hx Asthma: No Hx COPD: No Hx Diabetes: Yes Hx Cancer: No Hx Gastrointestinal Problems: Yes Hx Dialysis: No Hx Neurological Problems: Yes Hx Cerebrovascular Accident: No Hx Headaches: Yes Hx Weakness: Yes Review of Systems All Other Systems: negative except mentioned in HPI Physical Exam Vital Signs Date Time Temp Pulse Resp B/P (MAP) Pulse Ox O2 Delivery O2 Flow Rate FiO2 07/25/19 14:07 98.2 121 20 109/83 (92) 98 Room Air Sp02 EP Interpretation: reviewed, normal General Appearance: no apparent distress, alert, GCS 15, non-toxic, obese Head: normocephalic, atraumatic Eyes: bilateral eye normal inspection, bilateral eye PERRL ENT: hearing grossly normal, normal pharynx, no angioedema, normal voice Neck: full range of motion, supple/symm/no masses Respiratory: chest non-tender, lungs clear, normal breath sounds, speaking full sentences Cardiovascular #1: regular rate, rhythm, no edema Cardiovascular #2: 2+ carotid (R), 2+ carotid (L), 2+ radial (R), 2+ radial (L) , 2+ dorsalis pedis (R), 2+ dorsalis pedis (L) Gastrointestinal: normal bowel sounds, soft, non-distended, no guarding, no rebound, tenderness - RUQ Rectal: deferred Genitourinary: normal inspection, no CVA tenderness Musculoskeletal: back normal, normal range of motion, gait/station normal, non- tender Neurologic: alert, motor strength/tone normal, oriented x3, sensory intact, responsive, speech normal Psychiatric: judgement/insight normal, memory normal, mood/affect normal, no suicidal/homicidal ideation Reflexes: 3+ bicep (R), 3+ bicep (L), 3+ tricep (R), 3+ tricep (L), 3+ knee (R) , 3+ knee (L) Lymphatic: no adenopathy Medical Decision Making Diagnostic Impression: Primary Impression: Acute cholecystitis ER Course Hospital Course 54-year-old M presents to ED with RUQ pain Differential diagnoses include: Appendicitis, cholecystitis, small bowel obstruction Clinical course Patient placed on stretcher. alarm security or surveillance monitor. After initial history and physical I ordered labs, IV fluids, UA, pain medication Labs - leukocytosis noted, Hb/Hct stable. electrolytes ok. Patient was seen yesterday by myself. Had ultrasound which had positive Og' s and signs concerning for cholecystitis. Given antibiotics yesterday. Was evaluated by surgery but patient left AMA. Agrees to admission today. Evaluated by surgery at bedside. Given antibiotics. Case discussed with Dr. Scanlon and he agreed to accept the patient to his service for further care and support I feel this is a highly complex case requiring extensive working including EKG/ Rhythm strip, Xray/CT/US, Blood/urine lab work, repeat exams while in ED, and administration of strong opiates/narcotics for pain control, admission to hospital or close patient follow up. Diagnosis - cholecystitis Patient admitted to hospital in serious condition Labs Test 07/25/19 14:45 07/25/19 15:07 White Blood Count 13.3 K/UL (4.8-10.8) Red Blood Count 5.46 M/UL (4.70-6.10) Hemoglobin 15.8 G/DL (14.2-18.0) Hematocrit 49.8 % (42.0-52.0) Mean Corpuscular Volume 91 FL (80-99) Mean Corpuscular Hemoglobin 28.9 PG (27.0-31.0) Mean Corpuscular Hemoglobin Concent 31.7 G/DL (32.0-36.0) Red Cell Distribution Width 12.3 % (11.6-14.8) Platelet Count 246 K/UL (150-450) Mean Platelet Volume 7.9 FL (6.5-10.1) Neutrophils (%) (Auto) 75.3 % (45.0-75.0) Lymphocytes (%) (Auto) 17.1 % (20.0-45.0) Monocytes (%) (Auto) 6.4 % (1.0-10.0) Eosinophils (%) (Auto) 0.5 % (0.0-3.0) Basophils (%) (Auto) 0.7 % (0.0-2.0) Prothrombin Time 10.2 SEC (9.30-11.50) Prothromb Time International Ratio 1.0 (0.9-1.1) Activated Partial Thromboplast Time 35 SEC (23-33) Sodium Level 135 MMOL/L (136-145) Potassium Level 4.1 MMOL/L (3.5-5.1) Chloride Level 98 MMOL/L (98-107) Carbon Dioxide Level 32 MMOL/L (21-32) Anion Gap 5 mmol/L (5-15) Blood Urea Nitrogen 11 mg/dL (7-18) Creatinine 1.4 MG/DL (0.55-1.30) Estimat Glomerular Filtration Rate > 60 mL/min (>60) Glucose Level 191 MG/DL (74-106) Calcium Level 9.0 MG/DL (8.5-10.1) Total Bilirubin 0.9 MG/DL (0.2-1.0) Aspartate Amino Transf (AST/SGOT) 13 U/L (15-37) Alanine Aminotransferase (ALT/SGPT) 25 U/L (12-78) Alkaline Phosphatase 109 U/L (46-116) Total Protein 8.3 G/DL (6.4-8.2) Albumin 2.8 G/DL (3.4-5.0) Globulin 5.5 g/dL Albumin/Globulin Ratio 0.5 (1.0-2.7) Urine Color Pale yellow Urine Appearance Clear Urine pH 6 (4.5-8.0) Urine Specific [place] 1.005 (1.005-1.035) Urine Protein Negative (NEGATIVE) Urine Glucose (UA) 4+ (NEGATIVE) Urine Ketones 3+ (NEGATIVE) Urine Blood Negative (NEGATIVE) Urine Nitrite Negative (NEGATIVE) Urine Bilirubin Negative (NEGATIVE) Urine Urobilinogen Normal MG/DL (0.0-1.0) Urine Leukocyte Esterase Negative (NEGATIVE) Urine RBC 0-2 /HPF (0 - 0) Urine WBC 0-2 /HPF (0 - 0) Urine Squamous Epithelial Cells None /LPF (NONE/OCC) Urine Bacteria None /HPF (NONE) Last Vital Signs Date Time Temp Pulse Resp B/P (MAP) Pulse Ox O2 Delivery O2 Flow Rate FiO2 07/25/19 16:50 Room Air 07/25/19 16:40 97.8 95 20 157/80 98 Status: improved Disposition: ADMITTED INPATIENT Condition: Serious Referrals: [facility],REFERRING (PCP) Sae Wills MD Jul 25, 2019 17:17
[2019-07-25] MEDS: D5 1/2NS 1,000 ML IV SCH (18:59)
--- NOTE | 2019-07-25 19:16 | NUR ---
NURSE NOTES: Pt arrived from ER son at bedside correction made to type of phone pt does not have an Iphone , Dual phone at bedside, Pt stated past history of gall stone removal, DM , hypercholesteremia. Pt believes he has stomach flu, yet is pointing to area under right rib cage that is not radiating. 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 Skin clear, missing multiple teeth, abdomen large and distended bowel sounds hypoactive states he feels as if he has constipation and diarrhea at the same time. Louise running from ER . Pt states he is pain made aware that Dr will be called for orders. Since pt stated he has fallen within [address] call light on. " I did not get hurt, it was a easy fall.
--- NOTE | 2019-07-25 19:32 | NUR ---
NURSE NOTES: Dr Richards was given the message via telephone on admission status from ER , abdominal pain complaints, 03/04 and dm dx. Orders put in by . Iv given no signs of infiltration, pain medication given with effectiveness
--- NOTE | 2019-07-25 19:35 | NUR ---
HAND-OFF: Report given to Lucille MUSA.
--- NOTE | 2019-07-25 19:44 | NUR ---
NURSE NOTES: Received patient in bed, awake, alert, oriented x 4, on room air, ambulatory with steady gate, IV site is clean dry and intact, patient is able to verbalize his needs, call light is within reach, bed is lowered, locked and alarm is on. Will continue to monitor for comfort and safety.
[2019-07-25] MEDS: cefTRIAXone 1 GM in D5W 55 ML IVPB SCH (20:02)
[2019-07-25] MEDS: Atorvastatin 80mg tab ORAL SCH (20:17)
[2019-07-25 20:28] VITALS: BP 125/67
[2019-07-25] MEDS ORDERED: Miralax 17gm pkt ORAL PRN (21:00)
[2019-07-26] VITALS: BP 127/87
[2019-07-26] MEDS: D5 1/2NS 1,000 ML IV SCH ×4 (01:48→13:57)
[2019-07-26 04:00] VITALS: BP 125/78
[2019-07-26 05:39] LABS: BASOPHILS % (AUTO) 0.6 % (0.0-2.0); EOSINOPHILS % (AUTO) 0.9 % (0.0-3.0); HEMOGLOBIN 13.3 G/DL (14.2-18.0); LYMPHOCYTES % (AUTO) 9.9 % (20.0-45.0); MEAN CORPUSCULAR VOLUME 91 FL (80-99); MONOCYTES % (AUTO) 7.5 % (1.0-10.0); NEUTROPHILS % (AUTO) 81.2 % (45.0-75.0); PLATELET COUNT 212 K/UL (150-450); RED BLOOD COUNT 4.49 M/UL (4.70-6.10); RED CELL DISTRIBUTION WIDTH 12.8 % (11.6-14.8); WHITE BLOOD COUNT 13.2 K/UL (4.8-10.8)
[2019-07-26 05:58] LABS: ALANINE AMINOTRANSFERASE 17 U/L (12-78); ALBUMIN 2.3 G/DL (3.4-5.0); ALBUMIN/GLOBULIN RATIO 0.5 (1.0-2.7); ALKALINE PHOSPHATASE 87 U/L (46-116); ANION GAP 10 mmol/L (5-15); ASPARTATE AMINO TRANSFERASE 10 U/L (15-37); BILIRUBIN,TOTAL 0.8 MG/DL (0.2-1.0); BLOOD UREA NITROGEN 11 mg/dL (7-18); CALCIUM 8.8 MG/DL (8.5-10.1); CARBON DIOXIDE 25 MMOL/L (21-32); CHLORIDE 103 MMOL/L (98-107); CHOLESTEROL 134 MG/DL (< 200); HDL CHOLESTEROL 15 MG/DL (40-60); POTASSIUM 3.8 MMOL/L (3.5-5.1); SODIUM 138 MMOL/L (136-145); TRIGLYCERIDES 129 MG/DL (30-150)
--- NOTE | 2019-07-26 07:28 | NUR ---
NURSE NOTES: Received pt from SUJATA MUSA, Pt is alert and orient x4. pt is in RA, no SOB or acute respiratory distress noted. pt has intact iv access RAC 22G is running well. pt is NPO. all needs attended, bed is locked and is in the lowest position, call light within easy reach. will continue to monitor.
--- NOTE | 2019-07-26 07:33 | NUR ---
HAND-OFF: Report given to Caroline MUSA.
[2019-07-26 08:00] VITALS: BP 124/80
[2019-07-26] MEDS: HYDROmorphone 1mg/ml Carpuject IVP PRN ×2 (08:10→22:58)
[2019-07-26] MEDS: BuPROPion SR 150mg tab ORAL SCH (08:10)
--- NOTE | 2019-07-26 11:11 | NUR ---
CASE MANAGEMENT: INITIAL REVIEW 54 YO M PRESENTED TO ED FROM HOME CC: ABD PAIN PMHx: HTN. DM. SI:CHOLECYSTITIS. T 98.2 HR 121 RR 20 B/P 109/83 SATS 98% ON RA LABS: WBC 13.3 NA 135 CR 1.4 GLU 191 AST 13 IS: NS BOLUS X1 ZOFRAN IV X1 CXR IMPRESSION: Hypoventilatory exam. Subsegmental right basilar atelectasis. No clear consolidation. PATIENT ADMITTED TO MED/SURG 07/25/2019 @ 1514 DCP: PATIENT TO BE DISCHARGED TO HOME ONCE MEDICALLY CLEARED. PLAN OF CARE: n.p.o., IV fluids, IV antibiotics, a.m. labs, serial abdominal examinations 07/26/2019 SI:CHOLECYSTITIS. T 98.1 HR 97 RR 19 B/P 124/80 SATS 96% ON RA LABS: WBC 13.2 GLU 156 HA1C 8.7 AST 10 IS: D5NS @ 150 mL/HR LIPITOR PO QHS WELLBUTRIN PO QD CEFTRIAXONE IV QD MED/SURG DCP: PATIENT TO BE DISCHARGED TO HOME ONCE MEDICALLY CLEARED. PLAN OF CARE: CLD Addendum: 07/26/19 at 1418 by Emma Wolf CM INTERQUAL
[2019-07-26 12:00] VITALS: BP 113/75
--- NOTE | 2019-07-26 13:12 | NUR ---
NURSE NOTES: Spoke to Mike Chang regarding shower and new order received. Order read back and carried out.
--- NOTE | 2019-07-26 13:17 | History & Physical ---
History and Physical History & Physicial HP dictated # [id number] Mike Scanlon MD Jul 26, 2019 13:17
--- NOTE | 2019-07-26 13:32 | Surgery Progress Note ---
Surgery Progress Note Subjective Symptoms: improved, pain absent, tolerating diet, voiding well, passing flatus , BM Objective Last 24 Hour Vital Signs Date Time Temp Pulse Resp B/P (MAP) Pulse Ox O2 Delivery O2 Flow Rate FiO2 07/26/19 12:00 98.5 100 20 113/75 (88) 94 07/26/19 09:00 Room Air 07/26/19 08:40 98.4 07/26/19 08:00 98.1 97 19 124/80 (95) 96 07/26/19 04:00 98.4 78 21 125/78 (94) 96 07/26/19 00:00 98.7 84 18 127/87 (100) 94 07/25/19 21:00 Room Air 07/25/19 20:28 98.4 92 16 125/67 (86) 95 07/25/19 16:50 Room Air 07/25/19 16:40 97.8 95 20 157/80 98 Room Air 07/25/19 14:17 108 20 Room Air 07/25/19 14:17 98.2 108 20 109/83 98 Room Air 07/25/19 14:07 98.2 121 20 109/83 (92) 98 Room Air I&O Intake and Output 07/25/19 07/26/19 19:00 07:00 Intake Total 1000 ml 1350 ml Output Total 1800 ml Balance 1000 ml -450 ml Intake IV Total 1000 ml 1350 ml Output Urine Total 1800 ml # Voids 1 # Bowel Movements 1 Cardiovascular: RSR Respiratory: clear Abdomen: soft, non-tender, present bowel sounds, non-distended Extremities: no tenderness, no cyanosis Laboratory Tests Test 07/25/19 14:45 07/25/19 15:07 07/26/19 05:05 White Blood Count 13.3 K/UL (4.8-10.8) H 13.2 K/UL (4.8-10.8) H Red Blood Count 5.46 M/UL (4.70-6.10) 4.49 M/UL (4.70-6.10) L Hemoglobin 15.8 G/DL (14.2-18.0) 13.3 G/DL (14.2-18.0) L Hematocrit 49.8 % (42.0-52.0) 41.0 % (42.0-52.0) L Mean Corpuscular Volume 91 FL (80-99) 91 FL (80-99) Mean Corpuscular Hemoglobin 28.9 PG (27.0-31.0) 29.7 PG (27.0-31.0) Mean Corpuscular Hemoglobin Concent 31.7 G/DL (32.0-36.0) L 32.5 G/DL (32.0-36.0) Red Cell Distribution Width 12.3 % (11.6-14.8) 12.8 % (11.6-14.8) Platelet Count 246 K/UL (150-450) 212 K/UL (150-450) Mean Platelet Volume 7.9 FL (6.5-10.1) 8.2 FL (6.5-10.1) Neutrophils (%) (Auto) 75.3 % (45.0-75.0) H 81.2 % (45.0-75.0) H Lymphocytes (%) (Auto) 17.1 % (20.0-45.0) L 9.9 % (20.0-45.0) L Monocytes (%) (Auto) 6.4 % (1.0-10.0) 7.5 % (1.0-10.0) Eosinophils (%) (Auto) 0.5 % (0.0-3.0) 0.9 % (0.0-3.0) Basophils (%) (Auto) 0.7 % (0.0-2.0) 0.6 % (0.0-2.0) Prothrombin Time 10.2 SEC (9.30-11.50) Prothromb Time International Ratio 1.0 (0.9-1.1) Activated Partial Thromboplast Time 35 SEC (23-33) H Sodium Level 135 MMOL/L (136-145) L 138 MMOL/L (136-145) Potassium Level 4.1 MMOL/L (3.5-5.1) 3.8 MMOL/L (3.5-5.1) Chloride Level 98 MMOL/L (98-107) 103 MMOL/L (98-107) Carbon Dioxide Level 32 MMOL/L (21-32) 25 MMOL/L (21-32) Anion Gap 5 mmol/L (5-15) 10 mmol/L (5-15) Blood Urea Nitrogen 11 mg/dL (7-18) 11 mg/dL (7-18) Creatinine 1.4 MG/DL (0.55-1.30) H 1.0 MG/DL (0.55-1.30) Estimat Glomerular Filtration Rate > 60 mL/min (>60) > 60 mL/min (>60) Glucose Level 191 MG/DL (74-106) #H 156 MG/DL (74-106) H Calcium Level 9.0 MG/DL (8.5-10.1) 8.8 MG/DL (8.5-10.1) Total Bilirubin 0.9 MG/DL (0.2-1.0) 0.8 MG/DL (0.2-1.0) Aspartate Amino Transf (AST/SGOT) 13 U/L (15-37) L 10 U/L (15-37) L Alanine Aminotransferase (ALT/SGPT) 25 U/L (12-78) 17 U/L (12-78) Alkaline Phosphatase 109 U/L (46-116) 87 U/L (46-116) Total Protein 8.3 G/DL (6.4-8.2) H 6.9 G/DL (6.4-8.2) Albumin 2.8 G/DL (3.4-5.0) L 2.3 G/DL (3.4-5.0) L Globulin 5.5 g/dL 4.6 g/dL Albumin/Globulin Ratio 0.5 (1.0-2.7) L 0.5 (1.0-2.7) L Urine Color Pale yellow Urine Appearance Clear Urine pH 6 (4.5-8.0) Urine Specific [place] 1.005 (1.005-1.035) Urine Protein Negative (NEGATIVE) Urine Glucose (UA) 4+ (NEGATIVE) H Urine Ketones 3+ (NEGATIVE) H Urine Blood Negative (NEGATIVE) Urine Nitrite Negative (NEGATIVE) Urine Bilirubin Negative (NEGATIVE) Urine Urobilinogen Normal MG/DL (0.0-1.0) Urine Leukocyte Esterase Negative (NEGATIVE) Urine RBC 0-2 /HPF (0 - 0) H Urine WBC 0-2 /HPF (0 - 0) Urine Squamous Epithelial Cells None /LPF (NONE/OCC) Urine Bacteria None /HPF (NONE) Hemoglobin A1c 8.7 % (4.3-6.0) H Magnesium Level 2.0 MG/DL (1.8-2.4) Triglycerides Level 129 MG/DL (30-150) Cholesterol Level 134 MG/DL (< 200) LDL Cholesterol 85 mg/dL (<100) HDL Cholesterol 15 MG/DL (40-60) L Cholesterol/HDL Ratio 8.9 (3.3-4.4) H Plan Problems: (1) Abdominal pain Assessment & Plan: This is a 54-year-old male with likely acute cholecystitis. Afebrile, hemodynamically stable, leukocytosis 15,000 on 07/24, abnormal LFTs and labs. Prior CT reviewed noted. Ultrasound noted. Recommend patient to be admitted for further work-up, IV antibiotics, care and management. pain resolved still with leukocytosis tolerating clears on abx cont with current care plan trend labs Thank you will follow with recommendations Gregory Basilio Jul 26, 2019 13:32
[2019-07-26 16:00] VITALS: BP 122/79
--- NOTE | 2019-07-26 17:00 | Consultation ---
DATE OF CONSULTATION: 07/26/2019 INFECTIOUS DISEASE CONSULTATION CONSULTING PHYSICIAN: Landon Scanlon M.D. PRIMARY ATTENDING PHYSICIAN: Mike Scanlon M.D. REASON FOR CONSULTATION: Cholelithiasis and likely cholecystitis. HISTORY OF PRESENT ILLNESS: The patient is a 54-year-old male admitted yesterday from home complaining of right upper quadrant abdominal pain 04/04. The patient's pain started couple of days ago in middle of the week. In the first day, the patient had vomiting. He had another visit to the emergency room in 07/24/2019 but the symptoms did not get better and the patient came back. Previous laboratory showed leukocytosis initially that was 15,000 now it is decreasing. Ultrasound shows positive Og sign but CT scan did not show cholecystitis. PAST MEDICAL HISTORY: Significant for diabetes mellitus type 2, obesity, hypertension, history of pancreatitis, history of perirectal abscess, scalp abscess. ALLERGIES: Allergic to penicillin. MEDICATIONS: Getting Wellbutrin, Pepcid, Lipitor, MiraLAX, ceftriaxone, Tylenol, hydromorphone, get a dose of Cipro in the ER. SOCIAL HISTORY: Lives at home. He is single, smoke marijuana. Denies alcohol. Denies drug abuse except marijuana. Drinks three drinks in a week. REVIEW OF SYSTEMS: No fever. No chills. No coughing. No shortness of breath. No chest pain. No abdominal pain today. No diarrhea. He has constipation. No problem passing urination. PHYSICAL EXAMINATION: VITAL SIGNS: Temperature 98.4, pulse 97, blood pressure 124/80. GENERAL APPEARANCE: No acute distress. Obese with a BMI of 45.9. HEAD AND NECK: Poor dentition. No oral lesion. HEART: Normal rate. LUNGS: Clear. ABDOMEN: Obese. Soft and nontender. EXTREMITIES: No edema. NEUROLOGIC: Awake, alert, oriented, ambulatory. LABORATORY AND DIAGNOSTIC DATA: WBC 13.2, hemoglobin 13.3, hematocrit 41, platelet 212. Sodium 138, potassium 3.8, chloride 103, bicarb 25, BUN 11, creatinine 1, glucose 156, albumin 2.3. Chest x-ray shows hypoventilation, subsegmental and right basilar atelectasis. Had a CT scan that showed cholelithiasis, cardiomegaly, degenerative spondylosis. IMPRESSION: Cholelithiasis, likely with cholecystitis. The patient had symptoms on and off, has penicillin allergy, diabetes mellitus, hypertension, obesity. RECOMMENDATION: Continue with ceftriaxone. Dr. Basilio, surgeon will decide about action plan. At the end of my exam, I thank Dr. Mike Scanlon, for involving me in the care of this patient. Landon Scanlon M.D. DR: Delmer JOB#: [id number] CC: COURTNEY
--- NOTE | 2019-07-26 19:00 | History and Physical Report ---
DATE OF ADMISSION: 07/25/2019 CHIEF COMPLAINT: Abdominal pain. HISTORY OF PRESENT ILLNESS: This is a 54-year-old male, who said last Saturday he had some hamburger and then starting Saturday he could not eat anything because he had severe abdominal pain. This continued until he came to the emergency room and he was sent home. He came back again yesterday for the same problem and finally was admitted. The patient had leukocytosis of 15,000. Ultrasound was positive for cholelithiasis. The patient was seen by Dr. Basilio for surgical consultation. PAST MEDICAL HISTORY: History of diabetes and hypertension. MEDICATIONS: Reviewed in the EMR. SOCIAL HISTORY: No history of smoking or alcohol abuse. ALLERGIES: No known drug allergies. REVIEW OF SYSTEMS: As above. PHYSICAL EXAMINATION: GENERAL: The patient is an obese male, in no acute distress. He said his pain is gone now. VITAL SIGNS: Blood pressure 113/75, pulse 100, respirations 20, and temperature 98.5. HEENT: Larke conjunctivae. Anicteric sclerae. NECK: Supple. LUNGS: Clear to auscultation. HEART: S1, S2 without murmurs or rubs. ABDOMEN: Soft, nontender. EXTREMITIES: No cyanosis or edema. LABORATORY FINDINGS: CBC shows a WBC of 13,200, hematocrit 41, hemoglobin 13.3, and platelets 212,000. Chemistry panel shows serum sodium 138, potassium 3.8, chloride 103, BUN 11, and creatinine 1. Blood sugar is 156. Hemoglobin A1c is 8.7. LDL is 85. ASSESSMENT: This is a 54-year-old male, who is admitted with diagnosis of cholecystitis. The patient is doing better now. He was started on IV antibiotics. The patient will be on clear liquid diet. Labs will be followed and further adjustments will be made. I will discuss also with Dr. Basilio about the possibility of cholecystectomy. Mike Scanlon M.D. DR: ISABELA JOB#: [id number] CC:
--- NOTE | 2019-07-26 19:10 | NUR ---
NURSE NOTES: Recieved report from DIMPLE Niño.Pateint is awake and alert, remains stable and denies any pain , no I.V access , will continue to monitor Addendum: 07/26/19 at 2336 by Tim Martinez RN wrong patient note
--- NOTE | 2019-07-26 19:12 | NUR ---
NURSE NOTES: Received report from DIMPLE curiel. Patient is awake A/Ox4, breaths even regular unlabored on R/A, remains stable c/o pain 12/03, will provide pain meds as ordered , I.V access on RT with 22 gauge , with i.v fluids running, patent and asymptomatic , will continue to monitor
--- NOTE | 2019-07-26 19:20 | NUR ---
NURSE NOTES: kathleen
--- NOTE | 2019-07-26 19:21 | NUR ---
HAND-OFF: Report given to DIMPLE GUAN. Pt is awake and stable.
[2019-07-26 20:00] VITALS: BP 147/99
[2019-07-26] MEDS: cefTRIAXone 1 GM in D5W 55 ML IVPB SCH (21:21)
[2019-07-26] MEDS: Atorvastatin 80mg tab ORAL SCH (21:22)
[2019-07-27] VITALS (7 sets, daily range): BP systolic 99–151; BP diastolic 70–92
[2019-07-27] MEDS: D5 1/2NS 1,000 ML IV SCH ×2 (01:19→15:35)
[2019-07-27 06:20] LABS: BASOPHILS % (AUTO) 0.8 % (0.0-2.0); EOSINOPHILS % (AUTO) 1.2 % (0.0-3.0); HEMATOCRIT 38.2 % (42.0-52.0); HEMOGLOBIN 12.5 G/DL (14.2-18.0); MEAN CORPUSCULAR VOLUME 91 FL (80-99); MONOCYTES % (AUTO) 8.1 % (1.0-10.0); NEUTROPHILS % (AUTO) 72.9 % (45.0-75.0); PLATELET COUNT 223 K/UL (150-450); RED BLOOD COUNT 4.19 M/UL (4.70-6.10); RED CELL DISTRIBUTION WIDTH 12.6 % (11.6-14.8); WHITE BLOOD COUNT 11.3 K/UL (4.8-10.8)
[2019-07-27 06:41] LABS: ALANINE AMINOTRANSFERASE 15 U/L (12-78); ALBUMIN 2.2 G/DL (3.4-5.0); ALBUMIN/GLOBULIN RATIO 0.5 (1.0-2.7); ALKALINE PHOSPHATASE 95 U/L (46-116); AMYLASE 19 U/L (25-115); ANION GAP 7 mmol/L (5-15); ASPARTATE AMINO TRANSFERASE 11 U/L (15-37); BILIRUBIN,TOTAL 0.9 MG/DL (0.2-1.0); BLOOD UREA NITROGEN 9 mg/dL (7-18); CALCIUM 8.3 MG/DL (8.5-10.1); CARBON DIOXIDE 27 MMOL/L (21-32); CHLORIDE 103 MMOL/L (98-107); CREATININE 0.9 MG/DL (0.55-1.30); POTASSIUM 3.6 MMOL/L (3.5-5.1); SODIUM 137 MMOL/L (136-145)
[2019-07-27 06:42] LABS: INR 1.1 (0.9-1.1)
--- NOTE | 2019-07-27 07:30 | NUR ---
NURSE NOTES: Pt lying in bed w/bed in lowest position and call light within reach. Pt A&Ox4, VSS, and in no apparent distress. IV site intact/asymptomatic w/IVF infusing and skin intact. Pt c/o aching abdominal pain; will administer pain medication. Will continue to monitor.
--- NOTE | 2019-07-27 07:37 | NUR ---
HAND-OFF: Report given to Eder Hutchins. Patient is stable.
--- NOTE | 2019-07-27 07:40 | NUR ---
HAND-OFF: Report given to DIMPLE Davis.
[2019-07-27] MEDS: BuPROPion SR 150mg tab ORAL SCH (07:53)
--- NOTE | 2019-07-27 10:26 | NUR ---
*-* NO INSURANCE INFORMATION IN THE BAR UNABLE TO SEND CLINICALS OR REVIEWS *-*
--- NOTE | 2019-07-27 12:15 | Infectious Diseases Prog Note ---
Assessment/Plan Assessment/Plan IMPRESSION: Cholelithiasis, likely with cholecystitis. penicillin allergy, diabetes mellitus, hypertension, Morbid obesity. RECOMMENDATION: Continue with ceftriaxone. Dr. Basilio, surgeon will decide about action plan. Subjective ROS Limited/Unobtainable: No Constitutional: Reports: no symptoms Respiratory: Reports: no symptoms Cardiovascular: Reports: no symptoms Gastrointestinal/Abdominal: Reports: constipation Genitourinary: Reports: no symptoms Allergies: Coded Allergies: PENICILLINS (Verified Allergy, Intermediate, Rash, 07/22/19) Objective Vital Signs Last 24 Hour Vital Signs Date Time Temp Pulse Resp B/P (MAP) Pulse Ox O2 Delivery O2 Flow Rate FiO2 07/27/19 11:56 97.8 83 20 149/92 (111) 97 07/27/19 09:00 Room Air 07/27/19 08:00 99.0 100 20 99/73 (82) 95 07/27/19 04:00 99.0 93 18 151/90 (110) 93 07/27/19 00:00 99.0 93 18 133/81 (98) 94 07/26/19 21:00 Room Air 07/26/19 20:00 99.2 101 19 147/99 (115) 96 07/26/19 16:00 98.4 98 20 122/79 (93) 95 Height (Feet): 5 Height (Inches): 8.00 Weight (Pounds): 302 General Appearance: other - obese Respiratory/Chest: lungs clear Cardiovascular: normal rate Abdomen: soft, non tender Extremities: no edema Neurologic/Psychiatric: alert, oriented x 3, responsive Laboratory Tests Test 07/27/19 04:45 White Blood Count 11.3 K/UL (4.8-10.8) H Red Blood Count 4.19 M/UL (4.70-6.10) L Hemoglobin 12.5 G/DL (14.2-18.0) L Hematocrit 38.2 % (42.0-52.0) L Mean Corpuscular Volume 91 FL (80-99) Mean Corpuscular Hemoglobin 29.8 PG (27.0-31.0) Mean Corpuscular Hemoglobin Concent 32.7 G/DL (32.0-36.0) Red Cell Distribution Width 12.6 % (11.6-14.8) Platelet Count 223 K/UL (150-450) Mean Platelet Volume 7.6 FL (6.5-10.1) Neutrophils (%) (Auto) 72.9 % (45.0-75.0) Lymphocytes (%) (Auto) 17.0 % (20.0-45.0) L Monocytes (%) (Auto) 8.1 % (1.0-10.0) Eosinophils (%) (Auto) 1.2 % (0.0-3.0) Basophils (%) (Auto) 0.8 % (0.0-2.0) Erythrocyte Sedimentation Rate 70 MM/HR (0-20) H Prothrombin Time 11.2 SEC (9.30-11.50) Prothromb Time International Ratio 1.1 (0.9-1.1) Activated Partial Thromboplast Time 33 SEC (23-33) Sodium Level 137 MMOL/L (136-145) Potassium Level 3.6 MMOL/L (3.5-5.1) Chloride Level 103 MMOL/L (98-107) Carbon Dioxide Level 27 MMOL/L (21-32) Anion Gap 7 mmol/L (5-15) Blood Urea Nitrogen 9 mg/dL (7-18) Creatinine 0.9 MG/DL (0.55-1.30) Estimat Glomerular Filtration Rate > 60 mL/min (>60) Glucose Level 179 MG/DL (74-106) H Calcium Level 8.3 MG/DL (8.5-10.1) L Total Bilirubin 0.9 MG/DL (0.2-1.0) Aspartate Amino Transf (AST/SGOT) 11 U/L (15-37) L Alanine Aminotransferase (ALT/SGPT) 15 U/L (12-78) Alkaline Phosphatase 95 U/L (46-116) C-Reactive Protein, Quantitative 35.2 mg/dL (0.00-0.90) H Total Protein 7.0 G/DL (6.4-8.2) Albumin 2.2 G/DL (3.4-5.0) L Globulin 4.8 g/dL Albumin/Globulin Ratio 0.5 (1.0-2.7) L Amylase Level 19 U/L (25-115) L Lipase 118 U/L (73-393) Current Medications Medications (Trade) Dose Ordered Sig/Godwin Route PRN Reason Start Time Stop Time Status Last Admin Dose Admin Acetaminophen (Tylenol) 650 mg Q4H PRN ORAL Mild Pain (Pain Scale 1-3) 07/25/19 18:15 08/24/19 18:14 Atorvastatin Calcium (Lipitor) 80 mg BEDTIME ORAL 07/25/19 21:00 08/24/19 20:59 07/26/19 21:22 Bupropion HCl (Wellbutrin SR) 150 mg DAILY ORAL 07/26/19 09:00 08/25/19 08:59 07/27/19 07:53 Ceftriaxone Sodium 1 gm/ Dextrose 55 ml @ 110 mls/hr DAILY@2000 IVPB 07/25/19 19:30 08/01/19 19:29 07/26/19 21:21 Dextrose (Dextrose 50%) 25 ml Q30M PRN IV Hypoglycemia 07/25/19 18:15 08/24/19 18:14 Dextrose (Dextrose 50%) 50 ml Q30M PRN IV Hypoglycemia 07/25/19 18:15 08/24/19 18:14 Dextrose/Sodium Chloride 1,000 ml @ 75 mls/hr [id number] IV 07/26/19 14:30 08/24/19 14:29 07/27/19 01:19 Famotidine (Pepcid) 20 mg DAILY ORAL 07/26/19 09:00 08/25/19 08:59 07/27/19 07:52 Hydromorphone HCl (Dilaudid) 1 mg Q3H PRN IVP Moderate Pain (Pain Scale 4-6) 07/25/19 18:15 08/01/19 18:14 07/26/19 22:58 Hydromorphone HCl (Dilaudid) 2 mg Q3H PRN IVP Severe Pain (Pain Scale 7-10) 07/25/19 18:15 08/01/19 18:14 07/27/19 07:53 Polyethylene Glycol (Miralax) 17 gm HSPRN PRN ORAL Constipation 07/25/19 21:00 08/24/19 20:59 07/26/19 17:10 Temazepam (Restoril) 15 mg HSPRN PRN ORAL Insomnia 07/25/19 21:00 08/01/19 20:59 Landon Scanlon MD Jul 27, 2019 12:15
--- NOTE | 2019-07-27 12:27 | General Progress Note ---
Assessment/Plan Problem List: (1) Acute cholecystitis ICD Codes: K81.0 - Acute cholecystitis SNOMED: 76175202 (2) Uncontrolled diabetes mellitus ICD Codes: E11.65 - Type 2 diabetes mellitus with hyperglycemia SNOMED: 143664956 (3) Hypertension ICD Codes: I10 - Essential (primary) hypertension SNOMED: 59013591 Assessment/Plan: abxs laxatives will discuss with dr Basilio Subjective Allergies: Coded Allergies: PENICILLINS (Verified Allergy, Intermediate, Rash, 07/22/19) Subjective constipated Objective Last 24 Hour Vital Signs Date Time Temp Pulse Resp B/P (MAP) Pulse Ox O2 Delivery O2 Flow Rate FiO2 07/27/19 11:56 97.8 83 20 149/92 (111) 97 07/27/19 09:00 Room Air 07/27/19 08:00 99.0 100 20 99/73 (82) 95 07/27/19 04:00 99.0 93 18 151/90 (110) 93 07/27/19 00:00 99.0 93 18 133/81 (98) 94 07/26/19 21:00 Room Air 07/26/19 20:00 99.2 101 19 147/99 (115) 96 07/26/19 16:00 98.4 98 20 122/79 (93) 95 Intake and Output 07/26/19 07/27/19 19:00 07:00 Intake Total 1175 ml 955 ml Balance 1175 ml 955 ml Intake IV Total 1175 ml 955 ml # Bowel Movements 1 1 Laboratory Tests 07/27/19 04:45: White Blood Count 11.3H, Red Blood Count 4.19L, Hemoglobin 12.5L, Hematocrit 38.2L, Mean Corpuscular Volume 91, Mean Corpuscular Hemoglobin 29.8, Mean Corpuscular Hemoglobin Concent 32.7, Red Cell Distribution Width 12.6, Platelet Count 223, Mean Platelet Volume 7.6, Neutrophils (%) (Auto) 72.9, Lymphocytes (% ) (Auto) 17.0L, Monocytes (%) (Auto) 8.1, Eosinophils (%) (Auto) 1.2, Basophils (%) (Auto) 0.8, Erythrocyte Sedimentation Rate 70H, Prothrombin Time 11.2, Prothromb Time International Ratio 1.1, Activated Partial Thromboplast Time 33, Sodium Level 137, Potassium Level 3.6, Chloride Level 103, Carbon Dioxide Level 27, Anion Gap 7, Blood Urea Nitrogen 9, Creatinine 0.9, Estimat Glomerular Filtration Rate > 60, Glucose Level 179H, Calcium Level 8.3L, Total Bilirubin 0.9, Aspartate Amino Transf (AST/SGOT) 11L, Alanine Aminotransferase (ALT/SGPT) 15, Alkaline Phosphatase 95, C-Reactive Protein, Quantitative 35.2H, Total Protein 7.0, Albumin 2.2L, Globulin 4.8, Albumin/Globulin Ratio 0.5L, Amylase Level 19L, Lipase 118 Height (Feet): 5 Height (Inches): 8.00 Weight (Pounds): 302 Cardiovascular: normal rate Respiratory/Chest: lungs clear Abdomen: soft Mike Scanlon MD Jul 27, 2019 12:27
[2019-07-27] MEDS: Miralax 17gm pkt ORAL PRN (17:22)
--- NOTE | 2019-07-27 18:18 | Surgery Progress Note ---
Surgery Progress Note Subjective Symptoms: improved, pain absent, tolerating diet, voiding well, passing flatus , BM Objective Last 24 Hour Vital Signs Date Time Temp Pulse Resp B/P (MAP) Pulse Ox O2 Delivery O2 Flow Rate FiO2 07/27/19 16:00 99.4 102 20 144/92 (109) 97 07/27/19 11:56 97.8 83 20 149/92 (111) 97 07/27/19 09:00 Room Air 07/27/19 08:00 99.0 100 20 99/73 (82) 95 07/27/19 04:00 99.0 93 18 151/90 (110) 93 07/27/19 00:00 99.0 93 18 133/81 (98) 94 07/26/19 21:00 Room Air 07/26/19 20:00 99.2 101 19 147/99 (115) 96 I&O Intake and Output 07/26/19 07/27/19 19:00 07:00 Intake Total 1175 ml 955 ml Balance 1175 ml 955 ml Intake IV Total 1175 ml 955 ml # Bowel Movements 1 1 Cardiovascular: RSR Respiratory: clear Abdomen: soft, flat, non-tender, present bowel sounds Extremities: no edema, no tenderness, no cyanosis Laboratory Tests Test 07/27/19 04:45 White Blood Count 11.3 K/UL (4.8-10.8) H Red Blood Count 4.19 M/UL (4.70-6.10) L Hemoglobin 12.5 G/DL (14.2-18.0) L Hematocrit 38.2 % (42.0-52.0) L Mean Corpuscular Volume 91 FL (80-99) Mean Corpuscular Hemoglobin 29.8 PG (27.0-31.0) Mean Corpuscular Hemoglobin Concent 32.7 G/DL (32.0-36.0) Red Cell Distribution Width 12.6 % (11.6-14.8) Platelet Count 223 K/UL (150-450) Mean Platelet Volume 7.6 FL (6.5-10.1) Neutrophils (%) (Auto) 72.9 % (45.0-75.0) Lymphocytes (%) (Auto) 17.0 % (20.0-45.0) L Monocytes (%) (Auto) 8.1 % (1.0-10.0) Eosinophils (%) (Auto) 1.2 % (0.0-3.0) Basophils (%) (Auto) 0.8 % (0.0-2.0) Erythrocyte Sedimentation Rate 70 MM/HR (0-20) H Prothrombin Time 11.2 SEC (9.30-11.50) Prothromb Time International Ratio 1.1 (0.9-1.1) Activated Partial Thromboplast Time 33 SEC (23-33) Sodium Level 137 MMOL/L (136-145) Potassium Level 3.6 MMOL/L (3.5-5.1) Chloride Level 103 MMOL/L (98-107) Carbon Dioxide Level 27 MMOL/L (21-32) Anion Gap 7 mmol/L (5-15) Blood Urea Nitrogen 9 mg/dL (7-18) Creatinine 0.9 MG/DL (0.55-1.30) Estimat Glomerular Filtration Rate > 60 mL/min (>60) Glucose Level 179 MG/DL (74-106) H Calcium Level 8.3 MG/DL (8.5-10.1) L Total Bilirubin 0.9 MG/DL (0.2-1.0) Aspartate Amino Transf (AST/SGOT) 11 U/L (15-37) L Alanine Aminotransferase (ALT/SGPT) 15 U/L (12-78) Alkaline Phosphatase 95 U/L (46-116) C-Reactive Protein, Quantitative 35.2 mg/dL (0.00-0.90) H Total Protein 7.0 G/DL (6.4-8.2) Albumin 2.2 G/DL (3.4-5.0) L Globulin 4.8 g/dL Albumin/Globulin Ratio 0.5 (1.0-2.7) L Amylase Level 19 U/L (25-115) L Lipase 118 U/L (73-393) Plan Problems: (1) Abdominal pain Assessment & Plan: This is a 54-year-old male with likely acute cholecystitis. Afebrile, hemodynamically stable, leukocytosis 15,000 on 07/24, abnormal LFTs and labs. Prior CT reviewed noted. Ultrasound noted. Recommend patient to be admitted for further work-up, IV antibiotics, care and management. pain resolved labs improved adv diet d/c planning on abx cont with current care plan trend labs Thank you will follow with recommendations Gregory Basilio Jul 27, 2019 18:18
--- NOTE | 2019-07-27 19:20 | NUR ---
HAND-OFF: Report given to DIMPLE Paulino. Endorsed that I left vm for Dr. Scanlon regarding finger sticks and DM history.
--- NOTE | 2019-07-27 19:23 | Cardiology Report ---
APPROVED REPORT EKG Measurement Heart [id number] NV [id number] Sinus tachycardia Possible Left atrial enlargement Possible Anterolateral infarct, age undetermined Abnormal ECG
--- NOTE | 2019-07-27 19:25 | NUR ---
NURSE NOTES: Received a report from DIMPLE Davis. Pt is in stable condition. AAOX4. Able to make needs known. On room air. No c/o pain/discomfort. IV site is patent and intact. Bed in lowest position. Bed alarm is on. Call light within reach. Will continue to monitor.
[2019-07-27] MEDS: cefTRIAXone 1 GM in D5W 55 ML IVPB SCH (20:08)
[2019-07-27] MEDS: Atorvastatin 80mg tab ORAL SCH (20:08)
[2019-07-27] MEDS: HYDROmorphone 1mg/ml Carpuject IVP PRN (21:33)
[2019-07-28 04:00] VITALS: BP 138/85
[2019-07-28] MEDS: D5 1/2NS 1,000 ML IV SCH (05:03)
[2019-07-28 06:11] LABS: BASOPHILS % (AUTO) 0.8 % (0.0-2.0); EOSINOPHILS % (AUTO) 1.8 % (0.0-3.0); HEMATOCRIT 38.5 % (42.0-52.0); HEMOGLOBIN 12.4 G/DL (14.2-18.0); LYMPHOCYTES % (AUTO) 14.9 % (20.0-45.0); MEAN CORPUSCULAR VOLUME 91 FL (80-99); MONOCYTES % (AUTO) 9.8 % (1.0-10.0); NEUTROPHILS % (AUTO) 72.7 % (45.0-75.0); PLATELET COUNT 239 K/UL (150-450); RED BLOOD COUNT 4.24 M/UL (4.70-6.10); RED CELL DISTRIBUTION WIDTH 12.7 % (11.6-14.8); WHITE BLOOD COUNT 11.3 K/UL (4.8-10.8)
[2019-07-28 06:38] LABS: ALANINE AMINOTRANSFERASE 19 U/L (12-78); ALBUMIN 2.1 G/DL (3.4-5.0); ALBUMIN/GLOBULIN RATIO 0.4 (1.0-2.7); ALKALINE PHOSPHATASE 120 U/L (46-116); ANION GAP 9 mmol/L (5-15); ASPARTATE AMINO TRANSFERASE 16 U/L (15-37); BILIRUBIN,TOTAL 0.6 MG/DL (0.2-1.0); BLOOD UREA NITROGEN 9 mg/dL (7-18); CALCIUM 8.7 MG/DL (8.5-10.1); CARBON DIOXIDE 27 MMOL/L (21-32); CHLORIDE 102 MMOL/L (98-107); CREATININE 0.9 MG/DL (0.55-1.30); POTASSIUM 3.7 MMOL/L (3.5-5.1); SODIUM 138 MMOL/L (136-145)
--- NOTE | 2019-07-28 07:10 | NUR ---
HAND-OFF: Report given to DIMPLE Davis.
--- NOTE | 2019-07-28 07:30 | NUR ---
NURSE NOTES: Pt lying in bed w/bed in lowest position and call light within reach. Pt A&Ox4, VSS, and in no apparent distress. Pt states that he would like medication to help him have a BM; will administer Miralax and continue to monitor.
[2019-07-28 08:00] VITALS: BP 147/87
[2019-07-28] MEDS: BuPROPion SR 150mg tab ORAL SCH (08:15)
[2019-07-28] MEDS: Miralax 17gm pkt ORAL PRN (08:16)
--- NOTE | 2019-07-28 08:39 | NUR ---
CASE MANAGEMENT: INITIAL REVIEW 07/27/19 SI:CHOLECYSTITIS. 99.0 100 20 99/73 95% ON RA H/H 12.5/38.2 BG 179 CA+8.3 IS: IV ROCEPHIN QD WELLBUTRIN PO QD :3E MED SURG DCP: PATIENT TO BE DISCHARGED TO HOME ONCE MEDICALLY CLEARED. PLAN: AM LABS
[2019-07-28] MEDS: HYDROmorphone 1mg/ml Carpuject IVP PRN (09:49)
--- NOTE | 2019-07-28 11:29 | NUR ---
CASE MANAGEMENT: REVIEW 07/28/19 SI:CHOLECYSTITIS. 98.2 97 20 147/87 99% ON RA WBC 11.3 H/H 12.4/38.5 BG 192 IS: IVF NS @75ML/HR IV ROCEPHIN QD WELLBUTRIN PO QD :3E MED SURG DCP: PATIENT TO BE DISCHARGED TO HOME ONCE MEDICALLY CLEARED. PLAN: POSS DC THIS AM; NO SURG
[2019-07-28 11:45] VITALS: BP 120/79
--- NOTE | 2019-07-28 12:07 | Infectious Diseases Prog Note ---
Assessment/Plan Assessment/Plan IMPRESSION: Cholelithiasis, ? cholecystitis. penicillin allergy, diabetes mellitus, hypertension, Morbid obesity. Constipation Borderline leukocytosis RECOMMENDATION: Discontinue ceftriaxone. Agree with discharge May need cholecystectomy in future Subjective ROS Limited/Unobtainable: No Constitutional: Reports: no symptoms Respiratory: Reports: no symptoms Gastrointestinal/Abdominal: Reports: constipation Genitourinary: Reports: no symptoms Allergies: Coded Allergies: PENICILLINS (Verified Allergy, Intermediate, Rash, 07/22/19) Objective Vital Signs Last 24 Hour Vital Signs Date Time Temp Pulse Resp B/P (MAP) Pulse Ox O2 Delivery O2 Flow Rate FiO2 07/28/19 11:45 98.7 78 20 120/79 (93) 99 07/28/19 09:00 Room Air 07/28/19 08:00 98.2 97 20 147/87 (107) 99 07/28/19 04:00 98.7 93 19 138/85 (102) 95 07/28/19 03:05 98.7 07/27/19 23:41 98.7 92 20 127/74 (91) 96 07/27/19 22:03 98.8 07/27/19 21:00 Room Air 07/27/19 19:59 98.8 97 19 115/70 (85) 95 07/27/19 16:00 99.4 102 20 144/92 (109) 97 Height (Feet): 5 Height (Inches): 8.00 Weight (Pounds): 302 General Appearance: no acute distress, other - obese Respiratory/Chest: lungs clear Cardiovascular: normal rate Abdomen: soft, non tender Extremities: no edema Neurologic/Psychiatric: alert, oriented x 3, responsive Laboratory Tests Test 07/28/19 04:50 White Blood Count 11.3 K/UL (4.8-10.8) H Red Blood Count 4.24 M/UL (4.70-6.10) L Hemoglobin 12.4 G/DL (14.2-18.0) L Hematocrit 38.5 % (42.0-52.0) L Mean Corpuscular Volume 91 FL (80-99) Mean Corpuscular Hemoglobin 29.2 PG (27.0-31.0) Mean Corpuscular Hemoglobin Concent 32.1 G/DL (32.0-36.0) Red Cell Distribution Width 12.7 % (11.6-14.8) Platelet Count 239 K/UL (150-450) Mean Platelet Volume 7.7 FL (6.5-10.1) Neutrophils (%) (Auto) 72.7 % (45.0-75.0) Lymphocytes (%) (Auto) 14.9 % (20.0-45.0) L Monocytes (%) (Auto) 9.8 % (1.0-10.0) Eosinophils (%) (Auto) 1.8 % (0.0-3.0) Basophils (%) (Auto) 0.8 % (0.0-2.0) Sodium Level 138 MMOL/L (136-145) Potassium Level 3.7 MMOL/L (3.5-5.1) Chloride Level 102 MMOL/L (98-107) Carbon Dioxide Level 27 MMOL/L (21-32) Anion Gap 9 mmol/L (5-15) Blood Urea Nitrogen 9 mg/dL (7-18) Creatinine 0.9 MG/DL (0.55-1.30) Estimat Glomerular Filtration Rate > 60 mL/min (>60) Glucose Level 192 MG/DL (74-106) H Calcium Level 8.7 MG/DL (8.5-10.1) Total Bilirubin 0.6 MG/DL (0.2-1.0) Aspartate Amino Transf (AST/SGOT) 16 U/L (15-37) Alanine Aminotransferase (ALT/SGPT) 19 U/L (12-78) Alkaline Phosphatase 120 U/L (46-116) H Total Protein 6.9 G/DL (6.4-8.2) Albumin 2.1 G/DL (3.4-5.0) L Globulin 4.8 g/dL Albumin/Globulin Ratio 0.4 (1.0-2.7) L Current Medications Medications (Trade) Dose Ordered Sig/Godwin Route PRN Reason Start Time Stop Time Status Last Admin Dose Admin Acetaminophen (Tylenol) 650 mg Q4H PRN ORAL Mild Pain (Pain Scale 1-3) 07/25/19 18:15 08/24/19 18:14 07/28/19 02:35 Atorvastatin Calcium (Lipitor) 80 mg BEDTIME ORAL 07/25/19 21:00 08/24/19 20:59 07/27/19 20:08 Bupropion HCl (Wellbutrin SR) 150 mg DAILY ORAL 07/26/19 09:00 08/25/19 08:59 07/28/19 08:15 Ceftriaxone Sodium 1 gm/ Dextrose 55 ml @ 110 mls/hr DAILY@2000 IVPB 07/25/19 19:30 08/01/19 19:29 07/27/19 20:08 Dextrose (Dextrose 50%) 25 ml Q30M PRN IV Hypoglycemia 07/25/19 18:15 08/24/19 18:14 Dextrose (Dextrose 50%) 50 ml Q30M PRN IV Hypoglycemia 07/25/19 18:15 08/24/19 18:14 Dextrose/Sodium Chloride 1,000 ml @ 75 mls/hr [id number] IV 07/26/19 14:30 08/24/19 14:29 07/27/19 15:35 Famotidine (Pepcid) 20 mg DAILY ORAL 07/26/19 09:00 08/25/19 08:59 07/28/19 08:14 Hydromorphone HCl (Dilaudid) 1 mg Q3H PRN IVP Moderate Pain (Pain Scale 4-6) 07/25/19 18:15 08/01/19 18:14 07/28/19 09:49 Hydromorphone HCl (Dilaudid) 2 mg Q3H PRN IVP Severe Pain (Pain Scale 7-10) 07/25/19 18:15 08/01/19 18:14 07/27/19 07:53 Polyethylene Glycol (Miralax) 17 gm TIDPRN PRN ORAL Constipation 07/27/19 12:30 08/26/19 12:29 07/28/19 08:16 Temazepam (Restoril) 15 mg HSPRN PRN ORAL Insomnia 07/25/19 21:00 08/01/19 20:59 Landon Scanlon MD Jul 28, 2019 12:07
[2019-07-28] MEDS ORDERED: Milk of Magnesia 30ml Ud ORAL SCH ×2 (14:15→16:43)
--- NOTE | 2019-07-28 14:16 | NUR ---
*-* INSURANCE *-* CLINICALS AND REVIEWS [facility] DIANNE:ALEXUS [phone] WORK [phone] FAX [phone] Work 2
--- NOTE | 2019-07-28 14:32 | Surgery Progress Note ---
Surgery Progress Note Subjective Symptoms: improved, pain absent, tolerating diet, voiding well, passing flatus Additional Comments no acute events no pain no n/v/f/c doing well wants to go home constipated Objective Last 24 Hour Vital Signs Date Time Temp Pulse Resp B/P (MAP) Pulse Ox O2 Delivery O2 Flow Rate FiO2 07/28/19 11:45 98.7 78 20 120/79 (93) 99 07/28/19 09:00 Room Air 07/28/19 08:00 98.2 97 20 147/87 (107) 99 07/28/19 04:00 98.7 93 19 138/85 (102) 95 07/28/19 03:05 98.7 07/27/19 23:41 98.7 92 20 127/74 (91) 96 07/27/19 22:03 98.8 07/27/19 21:00 Room Air 07/27/19 19:59 98.8 97 19 115/70 (85) 95 07/27/19 16:00 99.4 102 20 144/92 (109) 97 I&O Intake and Output 07/27/19 07/28/19 18:59 06:59 Intake Total 1600 ml 1555 ml Output Total 2850 ml Balance 1600 ml -1295 ml Intake Oral 1000 ml 600 ml IV Total 600 ml 955 ml Output Urine Total 2850 ml # Voids 5 Cardiovascular: RSR Respiratory: clear Abdomen: soft, flat, non-tender, present bowel sounds, non-distended Extremities: no edema, no tenderness, no cyanosis Laboratory Tests Test 07/28/19 04:50 White Blood Count 11.3 K/UL (4.8-10.8) H Red Blood Count 4.24 M/UL (4.70-6.10) L Hemoglobin 12.4 G/DL (14.2-18.0) L Hematocrit 38.5 % (42.0-52.0) L Mean Corpuscular Volume 91 FL (80-99) Mean Corpuscular Hemoglobin 29.2 PG (27.0-31.0) Mean Corpuscular Hemoglobin Concent 32.1 G/DL (32.0-36.0) Red Cell Distribution Width 12.7 % (11.6-14.8) Platelet Count 239 K/UL (150-450) Mean Platelet Volume 7.7 FL (6.5-10.1) Neutrophils (%) (Auto) 72.7 % (45.0-75.0) Lymphocytes (%) (Auto) 14.9 % (20.0-45.0) L Monocytes (%) (Auto) 9.8 % (1.0-10.0) Eosinophils (%) (Auto) 1.8 % (0.0-3.0) Basophils (%) (Auto) 0.8 % (0.0-2.0) Sodium Level 138 MMOL/L (136-145) Potassium Level 3.7 MMOL/L (3.5-5.1) Chloride Level 102 MMOL/L (98-107) Carbon Dioxide Level 27 MMOL/L (21-32) Anion Gap 9 mmol/L (5-15) Blood Urea Nitrogen 9 mg/dL (7-18) Creatinine 0.9 MG/DL (0.55-1.30) Estimat Glomerular Filtration Rate > 60 mL/min (>60) Glucose Level 192 MG/DL (74-106) H Calcium Level 8.7 MG/DL (8.5-10.1) Total Bilirubin 0.6 MG/DL (0.2-1.0) Aspartate Amino Transf (AST/SGOT) 16 U/L (15-37) Alanine Aminotransferase (ALT/SGPT) 19 U/L (12-78) Alkaline Phosphatase 120 U/L (46-116) H Total Protein 6.9 G/DL (6.4-8.2) Albumin 2.1 G/DL (3.4-5.0) L Globulin 4.8 g/dL Albumin/Globulin Ratio 0.4 (1.0-2.7) L Plan Problems: (1) Abdominal pain Assessment & Plan: This is a 54-year-old male with likely acute cholecystitis. Afebrile, hemodynamically stable, leukocytosis 15,000 on 07/24, abnormal LFTs and labs. Prior CT reviewed noted. Ultrasound noted. Recommend patient to be admitted for further work-up, IV antibiotics, care and management. pain resolved labs improved adv diet d/c planning on abx - transition to oral for d/c bowel regimen tolerating diet f/u outpatient with pcp for surgical referral to have elective matthew if desired cont with current care plan trend labs Thank you will follow with recommendations Gregory Basilio 3, 2019 14:32
[2019-07-28 16:13] VITALS: BP 139/98
--- NOTE | 2019-07-28 18:32 | General Progress Note ---
Assessment/Plan Problem List: (1) Acute cholecystitis ICD Codes: K81.0 - Acute cholecystitis SNOMED: 40684908 (2) Uncontrolled diabetes mellitus ICD Codes: E11.65 - Type 2 diabetes mellitus with hyperglycemia SNOMED: 713273747 (3) Hypertension ICD Codes: I10 - Essential (primary) hypertension SNOMED: 77203960 Assessment/Plan: Dc today Subjective Allergies: Coded Allergies: PENICILLINS (Verified Allergy, Intermediate, Rash, 07/22/19) Subjective all noted Objective Last 24 Hour Vital Signs Date Time Temp Pulse Resp B/P (MAP) Pulse Ox O2 Delivery O2 Flow Rate FiO2 07/28/19 16:13 97.3 85 20 139/98 (112) 97 07/28/19 11:45 98.7 78 20 120/79 (93) 99 07/28/19 09:00 Room Air 07/28/19 08:00 98.2 97 20 147/87 (107) 99 07/28/19 04:00 98.7 93 19 138/85 (102) 95 07/28/19 03:05 98.7 07/27/19 23:41 98.7 92 20 127/74 (91) 96 07/27/19 22:03 98.8 07/27/19 21:00 Room Air 07/27/19 19:59 98.8 97 19 115/70 (85) 95 Intake and Output 07/27/19 07/28/19 19:00 07:00 Intake Total 1525 ml 1555 ml Output Total 2850 ml Balance 1525 ml -1295 ml Intake Oral 1000 ml 600 ml IV Total 525 ml 955 ml Output Urine Total 2850 ml # Voids 5 Laboratory Tests 07/28/19 04:50: White Blood Count 11.3H, Red Blood Count 4.24L, Hemoglobin 12.4L, Hematocrit 38.5L, Mean Corpuscular Volume 91, Mean Corpuscular Hemoglobin 29.2, Mean Corpuscular Hemoglobin Concent 32.1, Red Cell Distribution Width 12.7, Platelet Count 239, Mean Platelet Volume 7.7, Neutrophils (%) (Auto) 72.7, Lymphocytes (% ) (Auto) 14.9L, Monocytes (%) (Auto) 9.8, Eosinophils (%) (Auto) 1.8, Basophils (%) (Auto) 0.8, Sodium Level 138, Potassium Level 3.7, Chloride Level 102, Carbon Dioxide Level 27, Anion Gap 9, Blood Urea Nitrogen 9, Creatinine 0.9, Estimat Glomerular Filtration Rate > 60, Glucose Level 192H, Calcium Level 8.7, Total Bilirubin 0.6, Aspartate Amino Transf (AST/SGOT) 16, Alanine Aminotransferase (ALT/SGPT) 19, Alkaline Phosphatase 120H, Total Protein 6.9, Albumin 2.1L, Globulin 4.8, Albumin/Globulin Ratio 0.4L Height (Feet): 5 Height (Inches): 8.00 Weight (Pounds): 302 Mike Scanlon MD Jul 28, 2019 18:32
--- NOTE | 2019-07-28 20:20 | NUR ---
NURSE NOTES: Patient discharged at 2014. Left via ambulation. Picked up by family member. Stable. Left with belongings. IV and ID band removed by AM nurse.
--- NOTE | 2019-07-29 09:14 | Discharge Summary ---
Discharge Summary Discharge Summary _ DATE OF ADMISSION: 07/25/2019 DATE OF DISCHARGE: 07/28/2019 DISCHARGED BY: Dr. Mike Scanlon REASON FOR ADMISSION: 54 years old male with past medical history of hypertension, diabetes mellitus, started to have severe abdominal pain after eating hamburger. Abdominal pain continued , and he came to emergency room for further evaluation and then left against medical advise. However pain returned, and patient came back for further evaluation. Vital signs revealed no feve, but patient was tachycardic with heart rate 121. Laboratory work-up revealed leukocytosis WBC 13.3, stable hemoglobin , hematocrit and platelet count. Stable electrolytes. BUN 11, creatinine 1.4. Glucose 191. Stable LFT. Urinalysis revealed +4 glucose, + 3 ketones , no evidence of UTI. Chest x-ray demonstrated hypoventilatory exam with subsegmental right basilar atelectasis, no clear consolidation. CT scan of the abdomen and pelvis done i at prior visit to emergency room, revealed cholelithiasis. No acute findings. Cardiomegaly. Mild degenerative spondylosis. Abdominal ultrasound at that time revealed positive Og sign and findings suspicious for acute cholecystitis. Patient received antibiotics, but left AGAINST MEDICAL ADVICE. This time patient was agreeable to the admission. Patient was evaluated by surgeon at the bedside in emergency department , started on empiric antibiotic and admitted for further management. CONSULTANTS: General surgery Dr. Basilio ID specialist Dr. Landon Scanlon HOSPITAL COURSE Patient admitted to medical surgical floor. Patient started on the IV fluids and empiric antibiotic as per ID specialist recommendation. Pain management was addressed. Supportive care provided. Patient slowly started on clear liquid diet and was advanced as tolerated. Bowel regimen instituted. Pain was controlled . Leukocytosis resolved , patient was voiding without difficulty and had a bowel movement. No nausea or vomiting. No fever or chills. Per surgeon patient was stable for discharge home . Patient will need follow-up as outpatient with primary care provider for surgical referral to have elective cholecystectomy. Blood pressure was closely monitored and remained stable. Blood sugar was managed with current regimen . Hemoglobin A1c-8.3 , clearly not at goal. Patient was counseled on compliance with anti-glycemic regimen and diabetic diet at home. Patient clinically stabilized and was ready for discharge FINAL DIAGNOSES Cholelithiasis Acute cholecystitis Hypertension/EkT2a-4.3 Diabetes mellitus [id number] Morbid obesity Constipation DISCHARGE MEDICATIONS: See Medication Reconciliation list. DISCHARGE INSTRUCTIONS: Patient was discharged home. Follow-up with primary care provider in 1 week for surgical referral to have elective cholecystectomy. I have been assigned to dictate discharge summary for this account. I was not involved in the patient's management. Nikki Jack NP Jul 29, 2019 09:14
== END 2019-07-28 20:30 | disposition home or self-care (01) ==
LOC: EMR 14:44 → 3E 15:14 → EDBEDREQ 16:22
DX: K80.00 Calculus of gallbladder with acute cholecystitis without obstruction (principal); Z68.42 Body mass index [BMI] 45.0-49.9, adult; E66.01 Morbid (severe) obesity due to excess calories; Z88.0 Allergy status to penicillin; I10 Essential (primary) hypertension; E11.65 Type 2 diabetes mellitus with hyperglycemia; Z79.84 Long term (current) use of oral hypoglycemic drugs; Z79.82 Long term (current) use of aspirin
CPT/HCPCS: 36415; 71045; 80053; 80061; 81001; 82150; 83036; 83690; 83735; 85025; 85610; 85651; 85730; 86140; 86850; 86900; 86901; 93005; 96360; 96361; 96365; 96375; 99285; J2405; J7030